=== PATIENT | male | born 1995 | race Caucasian/White ===

== ENCOUNTER 2023-01-07 17:21 | Emergency (ER) | payer MEDICAID, SELFPAY ==
[~2023-01-07] VITALS: Ht 180.3 cm; Wt 89.0 kg
[2023-01-07 18:40] LABS: BASO % 0.4 % (0.0-1.0); EOS # 0.2 10^3/uL (0.0-0.5); EOS % 2.2 % (0.0-3.0); HEMATOCRIT 45.9 % (42.0-52.0); HEMOGLOBIN 15.6 g/dl (13.5-17.5); LYMPH % 26.9 % (24.0-44.0); MEAN CORPUSCULAR HEMOGLOBIN 26.9 pg (27.0-33.0); MEAN CORPUSCULAR VOLUME 79.3 fl (80.0-96.0); MONO # 1.1 10^3/uL (0.0-0.8); NEUTROPHILS % 55.2 % (36.0-66.0); PLATELET COUNT, AUTOMATED 322 10^3/uL (150-450); RED BLOOD COUNT 5.79 10^6/uL (4.30-6.10); WHITE BLOOD COUNT 7.3 10^3/uL (4.0-10.0)
[2023-01-07] MEDS ORDERED: ONDANSETRON 4MG 2ML VIAL IV ONE (18:55)
[2023-01-07] MEDS ORDERED: NS 1,000 ML IV ONE (18:55)
[2023-01-07] MEDS ORDERED: MORPHINE 4 MG/ML 1ML VIAL IV ONE (18:55)
[2023-01-07] MEDS ORDERED: ISOVUE-370 76% 100ML VIAL As Ordered ONE (19:00)
[2023-01-07 19:01] LABS: LIPASE 30 U/L (12-53)
[2023-01-07 19:03] LABS: ALBUMIN 3.7 G/DL (3.2-5.2); ALKALINE PHOSPHATASE 81 U/L (46-116); ALT/SGPT 26 U/L (7.0-40); AST/SGOT 20 U/L (<34); BILIRUBIN,DIRECT 0.2 MG/DL (<0.4); BILIRUBIN,TOTAL 0.6 MG/DL (0.3-1.2); BLOOD UREA NITROGEN 13 MG/DL (9-23); CALCIUM LEVEL 8.6 MG/DL (8.5-10.1); CARBON DIOXIDE LEVEL 26 MMOL/L (20-31); CHLORIDE LEVEL 104 MMOL/L (98-107); CREATININE FOR GFR 0.77 MG/DL (0.70-1.30); GLOMERULAR FILTRATION RATE > 60.0 (>60); GLUCOSE, FASTING 93 MG/DL (60-100); SODIUM LEVEL 136 MMOL/L (136-145); TOTAL PROTEIN 7.2 G/DL (5.7-8.2)
[2023-01-07] MEDS ORDERED: PENICILLIN V POTASSIUM 500 MG TAB PO ONE (20:55)
[2023-01-07 20:59] VITALS: BP 131/70; TEMP 98.7; O2SAT 98
[2023-01-07] MEDS ORDERED: PENI500T PO (21:06)
== END 2023-01-07 21:15 | disposition home or self-care (01) ==
LOC: M ED 17:21
DX: J03.00 Acute streptococcal tonsillitis, unspecified (principal); N20.0 Calculus of kidney; N28.1 Cyst of kidney, acquired; K76.89 Other specified diseases of liver; K21.9 Gastro-esophageal reflux disease without esophagitis; Z87.442 Personal history of urinary calculi; Z79.899 Other long term (current) drug therapy; F12.10 Cannabis abuse, uncomplicated; Z88.6 Allergy status to analgesic agent; Z88.5 Allergy status to narcotic agent; Z88.8 Allergy status to other drugs, medicaments and biological substances
CPT/HCPCS: 71046; 74177; 76705; 80048; 80076; 81001; 83605; 83690; 85025; 87486; 87581; 87633; 87798; 96361; 96374; 96375; 99284; J2405; Q9967

== ENCOUNTER 2023-01-28 20:06 | Emergency (ER) | payer MEDICAID, SELFPAY ==
[~2023-01-28] VITALS: Ht 180.3 cm; Wt 92.1 kg
[~2023-01-28 20:06] MED LIST: PENI500T PO
[2023-01-28] MEDS ORDERED: NAPR220C14 PO (20:13)
[2023-01-28] MEDS ORDERED: IBUP-1114 PO (20:13)
[2023-01-29] MEDS ORDERED: methocarbamoL 750 MG TAB PO ONE (01:30)
[2023-01-29] MEDS ORDERED: predniSONE 20 MG TAB PO ONE (01:30)
[2023-01-29] MEDS ORDERED: PRED20TA PO (01:33)
[2023-01-29] MEDS ORDERED: NAPR-837 PO (01:33)
[2023-01-29] MEDS ORDERED: METH-1165 PO (01:35)
[2023-01-29] MEDS ORDERED: ANEC4CRE3 TOP (01:35)
[2023-01-29] MEDS ORDERED: KETOROLAC 60MG 2ML VIAL IM ONE (02:00)
[2023-01-29 02:04] VITALS: BP 120/61; TEMP 97.1; O2SAT 97
== END 2023-01-29 02:05 | disposition home or self-care (01) ==
LOC: M ED 20:06
DX: R59.0 Localized enlarged lymph nodes (principal); Z87.442 Personal history of urinary calculi; F17.200 Nicotine dependence, unspecified, uncomplicated; Z88.6 Allergy status to analgesic agent; Z88.1 Allergy status to other antibiotic agents; Z88.5 Allergy status to narcotic agent
CPT/HCPCS: 96372; 99283; J1885

== ENCOUNTER 2023-02-27 09:27 | Emergency (ER) | payer MEDICAID, SELFPAY ==
[~2023-02-27] VITALS: Ht 180.3 cm; Wt 97.7 kg
[~2023-02-27 09:27] MED LIST changes: +ANEC4CRE3 TOP; +IBUP-1114 PO; +METH-1165 PO; +NAPR-837 PO; +NAPR220C14 PO; +PRED20TA PO
[2023-02-27] MEDS ORDERED: KETOROLAC 30 MG/ML 1ML VIAL IV ONE (11:25)
[2023-02-27] MEDS ORDERED: diazePAM 10MG/2ML SYRINGE IV ONE (11:25)
[2023-02-27] MEDS ORDERED: NS 1,000 ML IV ONE (11:25)
[2023-02-27] MEDS ORDERED: methylPREDNISolone 125MG 2ML VIAL IV ONE (11:25)
[2023-02-27 11:44] LABS: BASO # 0.1 10^3/uL (0.0-0.2); BASO % 0.8 % (0.0-1.0); EOS # 0.5 10^3/uL (0.0-0.5); EOS % 4.2 % (0.0-3.0); HEMATOCRIT 47.4 % (42.0-52.0); LYMPH # 1.9 10^3/uL (1.5-5.0); LYMPH % 17.6 % (24.0-44.0); MEAN CORPUSCULAR HEMOGLOBIN 27.3 pg (27.0-33.0); MEAN CORPUSCULAR HGB CONC 33.8 g/dl (32.0-36.5); MEAN CORPUSCULAR VOLUME 80.7 fl (80.0-96.0); MONO % 8.9 % (2.0-8.0); NEUTROPHILS # 7.5 10^3/uL (1.5-8.5); NEUTROPHILS % 68.1 % (36.0-66.0); PLATELET COUNT, AUTOMATED 359 10^3/uL (150-450); RED BLOOD COUNT 5.87 10^6/uL (4.30-6.10)
[2023-02-27 11:53] LABS: ERYTHROCYTE SEDIMENTATION RATE 19 mm/hr (0-15)
[2023-02-27] MEDS ORDERED: ONDANSETRON 4MG 2ML VIAL IV ONE (12:00)
[2023-02-27 12:12] LABS: BLOOD UREA NITROGEN 14 MG/DL (9-23); CALCIUM LEVEL 9.1 MG/DL (8.5-10.1); CARBON DIOXIDE LEVEL 28 MMOL/L (20-31); CHLORIDE LEVEL 105 MMOL/L (98-107); CREATININE FOR GFR 0.78 MG/DL (0.70-1.30); GLOMERULAR FILTRATION RATE > 60.0 (>60); GLUCOSE, FASTING 90 MG/DL (60-100); POTASSIUM SERUM 4.5 MMOL/L (3.5-5.1); SODIUM LEVEL 138 MMOL/L (136-145)
[2023-02-27] MEDS ORDERED: PRED20TA PO (16:18)
[2023-02-27 16:39] VITALS: BP 146/67; TEMP 97.6; O2SAT 97
== END 2023-02-27 16:49 | disposition home or self-care (01) ==
LOC: M ED 09:27
DX: M51.36 Other intervertebral disc degeneration, lumbar region (principal); M51.37 Other intervertebral disc degeneration, lumbosacral region; Z87.442 Personal history of urinary calculi; F17.200 Nicotine dependence, unspecified, uncomplicated; Z88.6 Allergy status to analgesic agent; Z88.1 Allergy status to other antibiotic agents; Z88.5 Allergy status to narcotic agent; Z88.8 Allergy status to other drugs, medicaments and biological substances
CPT/HCPCS: 72146; 72148; 80048; 85025; 85652; 86140; 96361; 96374; 96375; 99284; J1885; J2405; J2930; J3360

== ENCOUNTER 2023-03-12 19:03 | Emergency (ER) | payer MEDICAID, SELFPAY ==
[~2023-03-12] VITALS: Ht 180.3 cm; Wt 96.3 kg
[2023-03-12] MEDS ORDERED: NS 1,000 ML IV ONE (22:15)
[2023-03-12] MEDS ORDERED: predniSONE 20 MG TAB PO ONE (22:15)
[2023-03-12] MEDS ORDERED: methocarbamoL 500 MG TAB PO ONE (22:15)
[2023-03-13] MEDS ORDERED: KETOROLAC 30 MG/ML 1ML VIAL IV ONE (00:15)
[2023-03-13] MEDS ORDERED: METOCLOPRAMIDE INJ 10MG/2ML VIAL IV ONE (00:15)
[2023-03-13] MEDS ORDERED: REGL10TA6 PO (00:45)
[2023-03-13] MEDS ORDERED: PRED20TA PO (00:45)
[2023-03-13] MEDS ORDERED: METH-1164 PO (00:45)
[2023-03-13] MEDS ORDERED: IBUP-1022 PO (00:45)
[2023-03-13 01:08] VITALS: BP 122/58; TEMP 98.5; O2SAT 97
== END 2023-03-13 01:49 | disposition home or self-care (01) ==
LOC: M ED 19:03
DX: R42 Dizziness and giddiness (principal); M54.40 Lumbago with sciatica, unspecified side; Z87.442 Personal history of urinary calculi; Z88.6 Allergy status to analgesic agent; Z88.5 Allergy status to narcotic agent; Z88.8 Allergy status to other drugs, medicaments and biological substances
CPT/HCPCS: 70544; 70547; 70551; 72110; 87486; 87581; 87633; 87798; 96374; 96375; 99284; J1885; J2765; J7512

== ENCOUNTER 2023-04-24 11:16 | Emergency (ER) | payer MEDICAID, OTHER ==
[~2023-04-24] VITALS: Ht 180.3 cm; Wt 95.7 kg
[~2023-04-24 11:16] MED LIST changes: +IBUP-1022 PO; +METH-1164 PO; +REGL10TA6 PO
[2023-04-24 11:17] VITALS: BP 130/73; TEMP 98.1; O2SAT 99
[2023-04-24] MEDS ORDERED: NAPR-837 PO (13:21)
== END 2023-04-24 13:33 | disposition home or self-care (01) ==
LOC: M ED 11:16
DX: G56.02 Carpal tunnel syndrome, left upper limb (principal); F17.200 Nicotine dependence, unspecified, uncomplicated; Z88.6 Allergy status to analgesic agent; Z88.5 Allergy status to narcotic agent; Z88.8 Allergy status to other drugs, medicaments and biological substances

== ENCOUNTER 2023-05-16 01:03 | Emergency (ER) | payer OTHER ==
[~2023-05-16] VITALS: Ht 180.3 cm; Wt 92.6 kg
[2023-05-16 09:30] VITALS: BP 110/69; TEMP 96.4; O2SAT 100
== END 2023-05-16 09:32 | disposition home or self-care (01) ==
LOC: M ED 01:03
DX: G89.29 Other chronic pain (principal); M25.562 Pain in left knee; F17.200 Nicotine dependence, unspecified, uncomplicated; Z88.6 Allergy status to analgesic agent; Z88.5 Allergy status to narcotic agent; Z88.8 Allergy status to other drugs, medicaments and biological substances

== ENCOUNTER → 2023-05-21 | Outpatient (CLI) | payer OTHER | LOC: M SOG 08:03 | PROVIDERS: ATTEND Orthopaedic Surgery Hand Surgery | DX: M25.531 Pain in right wrist (principal); Z53.9 Procedure and treatment not carried out, unspecified reason ==

== ENCOUNTER 2023-07-20 06:59 | Day surgery (SDC) | payer OTHER ==
[~2023-07-20] VITALS: Ht 180.3 cm; Wt 97.5 kg
[~2023-07-20 06:59] MED LIST changes: +LR 1,000 ML IV SCH
[2023-07-20] MEDS ORDERED: MIDAZOLAM INJ 2MG/2ML VIAL As Ordered ONE (07:13)
[2023-07-20] MEDS ORDERED: propofoL 200 MG/20 ML VIAL As Ordered ONE (07:13)
[2023-07-20] MEDS ORDERED: fentaNYL 100 MCG/2 ML INJECTION As Ordered ONE (07:13)
[2023-07-20] MEDS ORDERED: KETOROLAC 60MG 2ML VIAL As Ordered ONE (07:13)
[2023-07-20] MEDS ORDERED: LIDOCAINE 2% 100MG/5ML SDV (FOR ANES.) As Ordered ONE (07:13)
[2023-07-20] MEDS ORDERED: fentaNYL 100 MCG/2 ML INJECTION IV PRN (09:05)
[2023-07-20] MEDS ORDERED: ONDANSETRON 4MG 2ML VIAL IV PRN (09:05)
[2023-07-20] MEDS ORDERED: KETOROLAC 30 MG/ML 1ML VIAL As Ordered ONE (09:13)
[2023-07-20 10:56] VITALS: BP 128/76; TEMP 97.2; O2SAT 100
== END 2023-07-20 11:14 | disposition home or self-care (01) ==
LOC: M SDC 06:59
PROVIDERS: ATTEND Orthopaedic Surgery Hand Surgery
DX: G56.02 Carpal tunnel syndrome, left upper limb (principal); K21.9 Gastro-esophageal reflux disease without esophagitis; R07.89 Other chest pain; Z88.5 Allergy status to narcotic agent; Z88.8 Allergy status to other drugs, medicaments and biological substances; Z91.040 Latex allergy status; F17.218 Nicotine dependence, cigarettes, with other nicotine-induced disorders; F12.10 Cannabis abuse, uncomplicated
CPT/HCPCS: 29848; J0665; J2250; J3010

== ENCOUNTER 2023-07-24 21:55 | Emergency (ER) | payer OTHER ==
[~2023-07-24] VITALS: Ht 180.3 cm; Wt 98.4 kg
[~2023-07-24 21:55] MED LIST changes: -LR 1,000 ML IV SCH
[2023-07-25 04:00] VITALS: BP 130/60; TEMP 99; O2SAT 99
== END 2023-07-25 04:50 | disposition home or self-care (01) ==
LOC: M ED 21:55
DX: S63.602A Unspecified sprain of left thumb, initial encounter (principal); W01.0XXA Fall on same level from slipping, tripping and stumbling without subsequent striking against object, initial encounter; F17.200 Nicotine dependence, unspecified, uncomplicated; F12.10 Cannabis abuse, uncomplicated; Z87.442 Personal history of urinary calculi; Z88.5 Allergy status to narcotic agent; Z88.8 Allergy status to other drugs, medicaments and biological substances; Z91.040 Latex allergy status; Z91.048 Other nonmedicinal substance allergy status

== ENCOUNTER → 2023-07-29 | Outpatient (CLI) | payer OTHER ==
[2023-07-29 16:03] LABS: BASO # 0.1 10^3/uL (0.0-0.2); BASO % 1.1 % (0.0-1.0); EOS # 0.5 10^3/uL (0.0-0.5); EOS % 7.1 % (0.0-3.0); HEMATOCRIT 45.9 % (42.0-52.0); HEMOGLOBIN 15.5 g/dl (13.5-17.5); LYMPH # 2.2 10^3/uL (1.5-5.0); LYMPH % 30.4 % (24.0-44.0); MEAN CORPUSCULAR HEMOGLOBIN 27.8 pg (27.0-33.0); MEAN CORPUSCULAR HGB CONC 33.8 g/dl (32.0-36.5); MEAN CORPUSCULAR VOLUME 82.4 fl (80.0-96.0); MONO # 0.7 10^3/uL (0.0-0.8); MONO % 9.1 % (2.0-8.0); NEUTROPHILS # 3.7 10^3/uL (1.5-8.5); PLATELET COUNT, AUTOMATED 338 10^3/uL (150-450); RED BLOOD COUNT 5.57 10^6/uL (4.30-6.10); WHITE BLOOD COUNT 7.2 10^3/uL (4.0-10.0)
[2023-07-29 16:34] LABS: ALBUMIN 3.8 G/DL (3.2-5.2); ALKALINE PHOSPHATASE 70 U/L (46-116); ALT/SGPT 30 U/L (7.0-40); AST/SGOT 17 U/L (<34); BILIRUBIN,TOTAL 0.5 MG/DL (0.3-1.2); BLOOD UREA NITROGEN 11 MG/DL (9-23); CALCIUM LEVEL 9.1 MG/DL (8.5-10.1); CARBON DIOXIDE LEVEL 29 MMOL/L (20-31); CHLORIDE LEVEL 104 MMOL/L (98-107); CHOLESTEROL LEVEL 154 MG/DL (<200); CHOLESTEROL RISK RATIO 4.59 (<5); CREATININE FOR GFR 0.87 MG/DL (0.70-1.30); FREE T4 1.15 NG/DL (0.89-1.76); GLOMERULAR FILTRATION RATE > 60.0 (>60); GLUCOSE, FASTING 79 MG/DL (60-100); HDL CHOLESTEROL 33.5 MG/DL (>40); LDL CHOLESTEROL 112.9 MG/DL (<100); NON-HDL-C 120.5 MG/DL; POTASSIUM SERUM 4.5 MMOL/L (3.5-5.1); SODIUM LEVEL 138 MMOL/L (136-145); THYROID STIMULATING HORMONE 1.067 uIU/ML (0.55-4.78); TRIGLYCERIDES LEVEL 38 MG/DL (<150)
[2023-07-29 17:04] LABS: HIV 1&2 SCREEN NEGATIVE (NEGATIVE)
[2023-07-29 17:12] LABS: HEPATITIS C VIRUS ABY INDEX 0.05 INDEX (<0.8)
== END ==
LOC: M PLALAB 13:57
PROVIDERS: ATTEND Physician Assistant
DX: Z11.4 Encounter for screening for human immunodeficiency virus [HIV] (principal); Z68.30 Body mass index [BMI] 30.0-30.9, adult; Z13.1 Encounter for screening for diabetes mellitus; Z13.29 Encounter for screening for other suspected endocrine disorder; Z11.59 Encounter for screening for other viral diseases

== ENCOUNTER 2023-08-09 17:30 | Emergency (ER) | payer OTHER ==
[~2023-08-09] VITALS: Ht 180.3 cm; Wt 97.6 kg
[2023-08-09] MEDS ORDERED: ONDANSETRON 4MG 2ML VIAL IV ONE (18:10)
[2023-08-09] MEDS ORDERED: NS 1,000 ML IV ONE (18:10)
[2023-08-09 18:57] LABS: BASO # 0.1 10^3/uL (0.0-0.2); BASO % 0.6 % (0.0-1.0); EOS # 0.8 10^3/uL (0.0-0.5); EOS % 6.1 % (0.0-3.0); HEMATOCRIT 44.5 % (42.0-52.0); HEMOGLOBIN 14.9 g/dl (13.5-17.5); LYMPH % 14.5 % (24.0-44.0); MEAN CORPUSCULAR HEMOGLOBIN 27.4 pg (27.0-33.0); MEAN CORPUSCULAR HGB CONC 33.5 g/dl (32.0-36.5); MEAN CORPUSCULAR VOLUME 81.8 fl (80.0-96.0); MONO # 1.4 10^3/uL (0.0-0.8); MONO % 10.5 % (2.0-8.0); NEUTROPHILS # 9.3 10^3/uL (1.5-8.5); NEUTROPHILS % 67.9 % (36.0-66.0); PLATELET COUNT, AUTOMATED 306 10^3/uL (150-450); RED BLOOD COUNT 5.44 10^6/uL (4.30-6.10); WHITE BLOOD COUNT 13.7 10^3/uL (4.0-10.0)
[2023-08-09 19:17] LABS: ALBUMIN 3.7 G/DL (3.2-5.2); BILIRUBIN,DIRECT 0.2 MG/DL (<0.4); BILIRUBIN,TOTAL 0.4 MG/DL (0.3-1.2); RSV AMPLIFICATION NEGATIVE (NEGATIVE); TOTAL PROTEIN 6.8 G/DL (5.7-8.2)
[2023-08-09] MEDS ORDERED: ISOVUE-370 76% 100ML VIAL As Ordered ONE (19:43)
[2023-08-09] MEDS ORDERED: BENZONATATE 100MG CAPSULE PO ONE (20:15)
[2023-08-09] MEDS ORDERED: KETOROLAC 30 MG/ML 1ML VIAL IV ONE (20:15)
[2023-08-09] MEDS ORDERED: BENZ200C70 PO (20:48)
[2023-08-09] MEDS ORDERED: ONDA4TAB6 PO (20:48)
[2023-08-09 20:58] VITALS: BP 126/74; TEMP 98.2; O2SAT 98
== END 2023-08-09 21:01 | disposition home or self-care (01) ==
LOC: M ED 17:30
DX: J06.9 Acute upper respiratory infection, unspecified (principal); F17.200 Nicotine dependence, unspecified, uncomplicated; F12.10 Cannabis abuse, uncomplicated; Z87.442 Personal history of urinary calculi; Z88.5 Allergy status to narcotic agent; Z88.6 Allergy status to analgesic agent; Z91.040 Latex allergy status; Z91.048 Other nonmedicinal substance allergy status; Z79.83 Long term (current) use of bisphosphonates; Z79.899 Other long term (current) drug therapy
CPT/HCPCS: 71046; 74177; 80047; 80076; 83690; 85025; 87040; 87631; 96361; 96374; 96375; 99284; J1885; J2405; Q9967

== ENCOUNTER → 2023-09-29 | Outpatient (CLI) | payer OTHER ==
[~2023-09-29] MED LIST changes: +BENZ200C70 PO; +ONDA4TAB6 PO
== END ==
LOC: M PLAIMG 12:04
PROVIDERS: ATTEND Physician Assistant
DX: M25.511 Pain in right shoulder (principal)

== ENCOUNTER → 2023-10-26 | Outpatient (CLI) | payer OTHER | LOC: M RAD 15:41 | PROVIDERS: ATTEND Physician Assistant | DX: R59.0 Localized enlarged lymph nodes (principal) ==

== ENCOUNTER 2023-11-01 18:41 | Emergency (ER) | payer OTHER ==
[~2023-11-01] VITALS: Ht 180.3 cm; Wt 97.7 kg
[2023-11-01 19:10] LABS: BASO # 0.1 10^3/uL (0.0-0.2); BASO % 0.6 % (0.0-1.0); EOS # 0.3 10^3/uL (0.0-0.5); EOS % 2.1 % (0.0-3.0); HEMATOCRIT 46.2 % (42.0-52.0); HEMOGLOBIN 15.8 g/dl (13.5-17.5); LYMPH # 2.2 10^3/uL (1.5-5.0); LYMPH % 16.4 % (24.0-44.0); MEAN CORPUSCULAR HEMOGLOBIN 28.1 pg (27.0-33.0); MEAN CORPUSCULAR HGB CONC 34.2 g/dl (32.0-36.5); MEAN CORPUSCULAR VOLUME 82.1 fl (80.0-96.0); MONO # 1.1 10^3/uL (0.0-0.8); MONO % 8.2 % (2.0-8.0); NEUTROPHILS # 9.8 10^3/uL (1.5-8.5); NEUTROPHILS % 72.3 % (36.0-66.0); PLATELET COUNT, AUTOMATED 333 10^3/uL (150-450); RED BLOOD COUNT 5.63 10^6/uL (4.30-6.10); WHITE BLOOD COUNT 13.6 10^3/uL (4.0-10.0)
[2023-11-01] MEDS: MORPHINE 4 MG/ML 1ML VIAL IV ONE (19:18)
[2023-11-01] MEDS: ONDANSETRON 4MG 2ML VIAL IV ONE (19:18)
[2023-11-01] MEDS: NS 1,000 ML IV ONE (19:19)
[2023-11-01 19:38] LABS: LIPASE 32 U/L (12-53)
[2023-11-01 19:39] LABS: AMYLASE 54 U/L (30-118)
[2023-11-01 19:40] LABS: ALBUMIN 3.7 G/DL (3.2-5.2); ALKALINE PHOSPHATASE 68 U/L (46-116); ALT/SGPT 26 U/L (7.0-40); AST/SGOT 16 U/L (<34); BILIRUBIN,DIRECT 0.1 MG/DL (<0.4); BILIRUBIN,TOTAL 0.3 MG/DL (0.3-1.2); BLOOD UREA NITROGEN 13 MG/DL (9-23); CALCIUM LEVEL 8.7 MG/DL (8.5-10.1); CARBON DIOXIDE LEVEL 26 MMOL/L (20-31); CHLORIDE LEVEL 109 MMOL/L (98-107); CREATININE FOR GFR 1.01 MG/DL (0.70-1.30); GLOMERULAR FILTRATION RATE > 60.0 (>60); GLUCOSE, FASTING 96 MG/DL (60-100); POTASSIUM SERUM 4.1 MMOL/L (3.5-5.1); SODIUM LEVEL 141 MMOL/L (136-145); TOTAL PROTEIN 6.7 G/DL (5.7-8.2)
[2023-11-01] MEDS ORDERED: FLOM0.4C39 PO (20:32)
[2023-11-01] MEDS: TAMSULOSIN 0.4 MG CAP PO ONE (20:44)
[2023-11-01 20:56] VITALS: BP 128/76; TEMP 98.8; O2SAT 98
== END 2023-11-01 20:58 | disposition home or self-care (01) ==
LOC: M ED 18:41
DX: N20.0 Calculus of kidney (principal); F17.200 Nicotine dependence, unspecified, uncomplicated; Z87.442 Personal history of urinary calculi; Z88.6 Allergy status to analgesic agent; Z88.5 Allergy status to narcotic agent; Z88.8 Allergy status to other drugs, medicaments and biological substances; Z91.040 Latex allergy status; Z79.83 Long term (current) use of bisphosphonates; Z79.2 Long term (current) use of antibiotics; Z79.899 Other long term (current) drug therapy
CPT/HCPCS: 74176; 80048; 80076; 81001; 82150; 83605; 83690; 85025; 93041; 96361; 96374; 99284; J2405

== ENCOUNTER 2023-11-03 12:23 | Emergency (ER) | payer OTHER ==
[~2023-11-03] VITALS: Ht 167.6 cm; Wt 97.7 kg
[~2023-11-03 12:23] MED LIST changes: +FLOM0.4C39 PO
[2023-11-03] MEDS ORDERED: CELE1CAP99 (12:37)
[2023-11-03 13:04] LABS: BASO # 0.1 10^3/uL (0.0-0.2); BASO % 0.5 % (0.0-1.0); EOS # 0.4 10^3/uL (0.0-0.5); EOS % 2.7 % (0.0-3.0); HEMATOCRIT 46.9 % (42.0-52.0); HEMOGLOBIN 15.8 g/dl (13.5-17.5); LYMPH # 2.2 10^3/uL (1.5-5.0); LYMPH % 14.8 % (24.0-44.0); MEAN CORPUSCULAR HGB CONC 33.7 g/dl (32.0-36.5); MONO # 1.7 10^3/uL (0.0-0.8); MONO % 11.2 % (2.0-8.0); NEUTROPHILS # 10.6 10^3/uL (1.5-8.5); NEUTROPHILS % 70.5 % (36.0-66.0); PLATELET COUNT, AUTOMATED 321 10^3/uL (150-450); RED BLOOD COUNT 5.65 10^6/uL (4.30-6.10)
[2023-11-03 13:37] LABS: ALBUMIN 3.6 G/DL (3.2-5.2); BILIRUBIN,DIRECT 0.3 MG/DL (<0.4); BILIRUBIN,TOTAL 0.7 MG/DL (0.3-1.2); TOTAL PROTEIN 6.8 G/DL (5.7-8.2)
[2023-11-03] MEDS: MORPHINE 4 MG/ML 1ML VIAL IV ONE (15:25)
[2023-11-03] MEDS: NS 1,000 ML IV ONE (15:26)
[2023-11-03 16:18] LABS: CALCIUM LEVEL 8.3 MG/DL (8.5-10.1); CREATININE FOR GFR 1.58 MG/DL (0.70-1.30); GLOMERULAR FILTRATION RATE 55.5 (>60); POTASSIUM SERUM 4.1 MMOL/L (3.5-5.1)
[2023-11-03 16:30] LABS: RSV AMPLIFICATION NEGATIVE (NEGATIVE)
[2023-11-03] MEDS: KETOROLAC 30 MG/ML 1ML VIAL IV ONE (16:44)
[2023-11-03 18:01] VITALS: BP 138/85; TEMP 97.9; O2SAT 99
== END 2023-11-03 18:14 | disposition home or self-care (01) ==
LOC: M ED 12:23
DX: N20.1 Calculus of ureter (principal); F17.200 Nicotine dependence, unspecified, uncomplicated; F12.10 Cannabis abuse, uncomplicated; Z87.442 Personal history of urinary calculi; Z88.6 Allergy status to analgesic agent; Z88.5 Allergy status to narcotic agent; Z88.8 Allergy status to other drugs, medicaments and biological substances; Z91.040 Latex allergy status; Z79.83 Long term (current) use of bisphosphonates; Z79.899 Other long term (current) drug therapy
CPT/HCPCS: 74176; 80047; 80048; 80076; 81001; 83690; 85025; 87631; 96361; 96374; 96375; 99284; J1885

== ENCOUNTER 2023-12-05 13:39 | Emergency (ER) | payer OTHER ==
[~2023-12-05] VITALS: Ht 180.3 cm; Wt 108.3 kg
[~2023-12-05 13:39] MED LIST changes: +CELE1CAP99
[2023-12-05] MEDS ORDERED: MUCI600T31 PO (13:50)
[2023-12-05 14:54] LABS: BASO # 0.1 10^3/uL (0.0-0.2); BASO % 0.9 % (0.0-1.0); EOS # 0.3 10^3/uL (0.0-0.5); EOS % 4.1 % (0.0-3.0); HEMOGLOBIN 16.5 g/dl (13.5-17.5); LYMPH % 24.1 % (24.0-44.0); MEAN CORPUSCULAR HGB CONC 34.4 g/dl (32.0-36.5); MEAN CORPUSCULAR VOLUME 81.5 fl (80.0-96.0); MONO # 0.6 10^3/uL (0.0-0.8); MONO % 7.2 % (2.0-8.0); NEUTROPHILS # 5.1 10^3/uL (1.5-8.5); NEUTROPHILS % 63.2 % (36.0-66.0); RED BLOOD COUNT 5.89 10^6/uL (4.30-6.10); WHITE BLOOD COUNT 8.1 10^3/uL (4.0-10.0)
[2023-12-05 14:59] LABS: PLATELET COUNT, AUTOMATED 258 10^3/uL (150-450)
[2023-12-05 15:09] LABS: ALBUMIN 3.9 G/DL (3.2-5.2); ALKALINE PHOSPHATASE 63 U/L (46-116); ALT/SGPT 44 U/L (7.0-40); AST/SGOT 50 U/L (<34); BILIRUBIN,DIRECT < 0.1 MG/DL (<0.4); BILIRUBIN,TOTAL 0.4 MG/DL (0.3-1.2); CK-MB VALUE MASS < 1.0 NG/ML (<3.6); CPK CREATINE PHOSPHOKINASE 93 U/L (46-171); LIPASE 40 U/L (12-53); MB/CK RELATIVE INDEX 1.07 (< OR =4); TOTAL PROTEIN 7.2 G/DL (5.7-8.2)
[2023-12-05] MEDS: KETOROLAC 30 MG/ML 1ML VIAL IV ONE (16:11)
[2023-12-05] MEDS: fentaNYL 100 MCG/2 ML INJECTION IV ONE (17:49)
[2023-12-05] MEDS ORDERED: ISOVUE-370 76% 100ML VIAL As Ordered ONE (18:02)
[2023-12-05 20:43] VITALS: BP 120/60; TEMP 98; O2SAT 98
== END 2023-12-05 21:03 | disposition home or self-care (01) ==
LOC: M ED 13:39
DX: K80.50 Calculus of bile duct without cholangitis or cholecystitis without obstruction (principal); Z87.442 Personal history of urinary calculi; F17.200 Nicotine dependence, unspecified, uncomplicated; Z88.6 Allergy status to analgesic agent; Z88.5 Allergy status to narcotic agent; Z88.8 Allergy status to other drugs, medicaments and biological substances; Z91.89 Other specified personal risk factors, not elsewhere classified; Z91.040 Latex allergy status
CPT/HCPCS: 74177; 76705; 80047; 80076; 81001; 82550; 82553; 83690; 85025; 87086; 93005; 96374; 96375; 99284; J1885; J3010; Q9967

== ENCOUNTER → 2023-12-10 | Outpatient (CLI) | payer OTHER ==
[~2023-12-10] MED LIST changes: +MUCI600T31 PO
== END ==
LOC: M PLAIMG 10:52
PROVIDERS: ATTEND Physician Assistant
DX: M75.41 Impingement syndrome of right shoulder (principal); M25.511 Pain in right shoulder; M19.011 Primary osteoarthritis, right shoulder

== ENCOUNTER 2023-12-14 17:16 | Emergency (ER) | payer OTHER ==
[~2023-12-14] VITALS: Ht 180.3 cm; Wt 108.5 kg
[2023-12-14] MEDS ORDERED: PANT40TA29 (17:30)
[2023-12-14] MEDS ORDERED: ONDA4TAB6 (17:30)
[2023-12-14 20:12] LABS: BASO # 0.1 10^3/uL (0.0-0.2); BASO % 0.7 % (0.0-1.0); EOS # 0.4 10^3/uL (0.0-0.5); EOS % 3.7 % (0.0-3.0); HEMATOCRIT 46.8 % (42.0-52.0); HEMOGLOBIN 15.9 g/dl (13.5-17.5); LYMPH # 2.5 10^3/uL (1.5-5.0); LYMPH % 25.8 % (24.0-44.0); MEAN CORPUSCULAR HEMOGLOBIN 27.7 pg (27.0-33.0); MEAN CORPUSCULAR VOLUME 81.7 fl (80.0-96.0); MONO # 0.8 10^3/uL (0.0-0.8); MONO % 8.1 % (2.0-8.0); NEUTROPHILS % 61.4 % (36.0-66.0); PLATELET COUNT, AUTOMATED 313 10^3/uL (150-450); RED BLOOD COUNT 5.73 10^6/uL (4.30-6.10); WHITE BLOOD COUNT 9.7 10^3/uL (4.0-10.0)
[2023-12-14 20:43] LABS: LIPASE 34 U/L (12-53)
[2023-12-14 20:45] LABS: ALBUMIN 3.9 G/DL (3.2-5.2); ALKALINE PHOSPHATASE 65 U/L (46-116); ALT/SGPT 42 U/L (7.0-40); AST/SGOT 21 U/L (<34); BILIRUBIN,DIRECT 0.1 MG/DL (<0.4); BILIRUBIN,TOTAL 0.4 MG/DL (0.3-1.2); BLOOD UREA NITROGEN 11 MG/DL (9-23); CALCIUM LEVEL 9.2 MG/DL (8.5-10.1); CARBON DIOXIDE LEVEL 26 MMOL/L (20-31); CHLORIDE LEVEL 109 MMOL/L (98-107); CREATININE FOR GFR 0.84 MG/DL (0.70-1.30); GLOMERULAR FILTRATION RATE > 60.0 (>60); GLUCOSE, FASTING 88 MG/DL (60-100); POTASSIUM SERUM 4.4 MMOL/L (3.5-5.1); SODIUM LEVEL 139 MMOL/L (136-145)
[2023-12-15] MEDS: DICYCLOMINE 10 MG CAP PO ONE (01:23)
[2023-12-15] MEDS: KETOROLAC 60MG 2ML VIAL IM ONE (01:23)
[2023-12-15] MEDS: ONDANSETRON 4MG ORAL DISINTEGRATING TAB PO ONE (01:24)
[2023-12-15] MEDS ORDERED: IBUP-1022 PO (02:00)
[2023-12-15 02:15] VITALS: BP 116/71; TEMP 97.6; O2SAT 96
== END 2023-12-15 02:37 | disposition home or self-care (01) ==
LOC: M ED 17:16
DX: R10.11 Right upper quadrant pain (principal); K21.9 Gastro-esophageal reflux disease without esophagitis; Z87.442 Personal history of urinary calculi; F17.200 Nicotine dependence, unspecified, uncomplicated; Z88.6 Allergy status to analgesic agent; Z88.8 Allergy status to other drugs, medicaments and biological substances; Z88.5 Allergy status to narcotic agent; Z91.018 Allergy to other foods; Z91.89 Other specified personal risk factors, not elsewhere classified
CPT/HCPCS: 76705; 80048; 80076; 83690; 85025; 96372; 99284; J1885

== ENCOUNTER 2024-01-19 20:00 | Emergency (ER) | payer OTHER ==
[~2024-01-19] VITALS: Ht 180.3 cm; Wt 104.5 kg
[~2024-01-19 20:00] MED LIST changes: +ONDA4TAB6; +PANT40TA29
[2024-01-19 20:09] VITALS: TEMP 98.4
[2024-01-19 20:56] LABS: BASO # 0.1 10^3/uL (0.0-0.2); BASO % 0.5 % (0.0-1.0); EOS # 0.1 10^3/uL (0.0-0.5); EOS % 0.4 % (0.0-3.0); HEMATOCRIT 44.1 % (42.0-52.0); HEMOGLOBIN 15.1 g/dl (13.5-17.5); LYMPH # 2.4 10^3/uL (1.5-5.0); LYMPH % 16.4 % (24.0-44.0); MEAN CORPUSCULAR HEMOGLOBIN 27.7 pg (27.0-33.0); MEAN CORPUSCULAR HGB CONC 34.2 g/dl (32.0-36.5); MEAN CORPUSCULAR VOLUME 80.8 fl (80.0-96.0); MONO # 1.5 10^3/uL (0.0-0.8); MONO % 10.2 % (2.0-8.0); NEUTROPHILS # 10.4 10^3/uL (1.5-8.5); PLATELET COUNT, AUTOMATED 323 10^3/uL (150-450); RED BLOOD COUNT 5.46 10^6/uL (4.30-6.10); WHITE BLOOD COUNT 14.5 10^3/uL (4.0-10.0)
[2024-01-19 21:31] LABS: LIPASE 38 U/L (12-53)
[2024-01-19 21:34] LABS: ALBUMIN 3.9 G/DL (3.2-5.2); ALKALINE PHOSPHATASE 64 U/L (46-116); ALT/SGPT 30 U/L (7.0-40); AST/SGOT 16 U/L (<34); BILIRUBIN,DIRECT 0.2 MG/DL (<0.4); BILIRUBIN,TOTAL 0.5 MG/DL (0.3-1.2); BLOOD UREA NITROGEN 16 MG/DL (9-23); CALCIUM LEVEL 8.5 MG/DL (8.5-10.1); CARBON DIOXIDE LEVEL 23 MMOL/L (20-31); CHLORIDE LEVEL 108 MMOL/L (98-107); CREATININE FOR GFR 1.08 MG/DL (0.70-1.30); GLOMERULAR FILTRATION RATE > 60.0 (>60); GLUCOSE, FASTING 86 MG/DL (60-100); SODIUM LEVEL 141 MMOL/L (136-145); TOTAL PROTEIN 6.7 G/DL (5.7-8.2)
[2024-01-19] MEDS: MORPHINE 4 MG/ML 1ML VIAL IV ONE (21:34)
[2024-01-19] MEDS: NS 1,000 ML IV SCH (21:35)
[2024-01-19] MEDS: GASTROGRAFIN SOLUTION 30ML PO SCH (23:09)
[2024-01-19] MEDS: KETOROLAC 30 MG/ML 1ML VIAL IV ONE (23:16)
[2024-01-19] MEDS ORDERED: ISOVUE-370 76% 100ML VIAL As Ordered ONE (23:54)
[2024-01-20 01:45] VITALS: BP 108/59; O2SAT 94
== END 2024-01-20 02:16 | disposition home or self-care (01) ==
LOC: M ED 20:00
DX: K80.51 Calculus of bile duct without cholangitis or cholecystitis with obstruction (principal); F90.9 Attention-deficit hyperactivity disorder, unspecified type; Z88.5 Allergy status to narcotic agent; Z88.6 Allergy status to analgesic agent; Z88.8 Allergy status to other drugs, medicaments and biological substances; Z91.89 Other specified personal risk factors, not elsewhere classified; Z91.040 Latex allergy status
CPT/HCPCS: 74177; 76705; 80048; 80076; 81001; 83605; 83690; 85025; 87040; 93041; 96374; 96375; 99283; 99284; J1885; Q9963; Q9967

== ENCOUNTER 2024-03-28 17:24 | Emergency (ER) | payer OTHER ==
[~2024-03-28] VITALS: Ht 180.3 cm; Wt 102.0 kg
[~2024-03-28 17:24] MED LIST changes: +LIDO5DIS41 TD; +ONDA-282; +ONDA-282 PO; -ONDA4TAB6; -ONDA4TAB6 PO; +PANT20TA6 PO; +PANT40TA29 PO
[2024-03-28] MEDS: diazePAM 5MG TABLET PO ONE (19:03)
[2024-03-28] MEDS: KETOROLAC 30 MG/ML 1ML VIAL IM ONE (19:04)
[2024-03-28] MEDS: MORPHINE 4 MG/ML 1ML VIAL IV ONE (20:34)
[2024-03-28] MEDS: LIDOCAINE 5% (LIDODERM) PATCH TD ONE (20:35)
[2024-03-28] MEDS ORDERED: NAPR-885 PO (21:48)
[2024-03-28] MEDS ORDERED: MEDR4PAK PO (21:48)
[2024-03-28 22:01] VITALS: BP 133/86; TEMP 97.4; O2SAT 97
== END 2024-03-28 22:05 | disposition home or self-care (01) ==
LOC: M ED 17:24
DX: M51.27 Other intervertebral disc displacement, lumbosacral region (principal); K21.9 Gastro-esophageal reflux disease without esophagitis; Z87.442 Personal history of urinary calculi; F17.200 Nicotine dependence, unspecified, uncomplicated; Z79.899 Other long term (current) drug therapy; Z88.6 Allergy status to analgesic agent; Z88.8 Allergy status to other drugs, medicaments and biological substances; Z88.5 Allergy status to narcotic agent; Z91.89 Other specified personal risk factors, not elsewhere classified; Z91.040 Latex allergy status
CPT/HCPCS: 72128; 72131; 96372; 96374; 99284; J1100; J1885

== ENCOUNTER 2024-05-04 15:06 | Day surgery (SDC) | payer OTHER ==
[~2024-05-04] VITALS: Ht 180.3 cm; Wt 107.5 kg
[~2024-05-04 15:06] MED LIST changes: +BACL10TA2 PO; +CELE0.09 PO; +FAMO1TAB11 PO; +MEDR4PAK PO; +NAPR-885 PO
[2024-05-04] MEDS ORDERED: LR 1,000 ML IV SCH ×2 (15:10→18:55)
[2024-05-04] MEDS ORDERED: OXYC-517 PO (16:37)
[2024-05-04] MEDS ORDERED: propofoL 200 MG/20 ML VIAL As Ordered ONE (16:41)
[2024-05-04] MEDS ORDERED: ONDA-282 PO (16:41)
[2024-05-04] MEDS ORDERED: ROCURONIUM BROMIDE 50MG/5ML VIAL As Ordered ONE (16:41)
[2024-05-04] MEDS ORDERED: ACET325C5 PO (16:41)
[2024-05-04] MEDS ORDERED: CELE1CAP4 PO (16:41)
[2024-05-04] MEDS ORDERED: LIDOCAINE 2% 100MG/5ML SDV (FOR ANES.) As Ordered ONE (16:44)
[2024-05-04] MEDS ORDERED: fentaNYL 100 MCG/2 ML INJECTION As Ordered ONE (16:46)
[2024-05-04] MEDS ORDERED: MIDAZOLAM INJ 2MG/2ML VIAL As Ordered ONE (16:47)
[2024-05-04] MEDS: ceFAZolin 2 GM/D5W 50 ML IV BAG As Ordered ONE (17:20)
[2024-05-04] MEDS: TRANEXAMIC ACID 100 MG/ML 10ML VIAL As Ordered ONE (17:25)
[2024-05-04] MEDS ORDERED: ONDANSETRON 4MG 2ML VIAL As Ordered ONE (17:32)
[2024-05-04] MEDS ORDERED: SUGAMMADEX SODIUM 500 MG/5 ML VIAL (BRIDION) As Ordered ONE (17:32)
[2024-05-04] MEDS ORDERED: dexmedeTOMIDine (4MCG/ML)200MCG/50ML BTL (PRECEDEX) As Ordered ONE (17:50)
[2024-05-04] MEDS ORDERED: KETOROLAC 60MG 2ML VIAL As Ordered ONE (17:50)
[2024-05-04] MEDS ORDERED: VANCOMYCIN 1000MG/20ML VIAL As Ordered ONE (18:27)
[2024-05-04] MEDS ORDERED: ONDANSETRON 4MG 2ML VIAL IV PRN (18:55)
[2024-05-04] MEDS ORDERED: ROPIvacaine 0.5% 30ML VIAL PN ONE (18:55)
[2024-05-04] MEDS ORDERED: MIDAZOLAM INJ 2MG/2ML VIAL IV PRN (18:55)
[2024-05-04] MEDS ORDERED: dexAMETHasone 10MG/1ML VIAL PRES.FREE PN ONE (18:55)
[2024-05-04] MEDS ORDERED: LIDOCAINE 1% SDV 5ML VIAL PN ONE (18:55)
[2024-05-04] MEDS ORDERED: fentaNYL 100 MCG/2 ML INJECTION IV PRN ×2 (18:55)
[2024-05-04 20:10] VITALS: BP 145/78; TEMP 96.8; O2SAT 99
[2024-05-05] MEDS ORDERED: CELE1CAP4 PO (23:01)
[2024-05-05] MEDS ORDERED: OXYC-517 PO (23:01)
[2024-05-05] MEDS ORDERED: ACET-907 PO (23:01)
[2024-05-05] MEDS ORDERED: ONDA-282 PO (23:01)
== END 2024-05-04 20:39 | disposition home or self-care (01) ==
LOC: M SDC 15:06
PROVIDERS: ATTEND Orthopaedic Surgery
DX: M19.011 Primary osteoarthritis, right shoulder (principal); M75.21 Bicipital tendinitis, right shoulder; K21.9 Gastro-esophageal reflux disease without esophagitis; F17.218 Nicotine dependence, cigarettes, with other nicotine-induced disorders; F12.10 Cannabis abuse, uncomplicated
CPT/HCPCS: 23120; 29828; 73020; C1713; J0665; J0690; J1100; J1885; J2250; J2405; J3010; J3370

== ENCOUNTER 2024-05-05 15:49 | Inpatient (IN) | payer OTHER ==
[~2024-05-05] VITALS: Ht 180.3 cm; Wt 106.4 kg
[~2024-05-05 15:49] MED LIST changes: +ACET325C5 PO; +CELE1CAP4 PO; +OXYC-517 PO
[2024-05-05] MEDS: oxyCODONE 5MG TAB PO ONE (20:47)
[2024-05-05] MEDS: methylPREDNISolone 125MG 2ML VIAL IV ONE (20:48)
[2024-05-05] MEDS: FAMOTIDINE IV BAG 20 MG in IV 1 EA IV ONE (20:49)
[2024-05-05] MEDS: KETOROLAC 30 MG/ML 1ML VIAL IV ONE (20:49)
[2024-05-05 21:00] LABS: BASO # 0.1 10^3/uL (0.0-0.2); BASO % 0.2 % (0.0-1.0); HEMATOCRIT 45.4 % (42.0-52.0); HEMOGLOBIN 15.6 g/dl (13.5-17.5); LYMPH # 2.2 10^3/uL (1.5-5.0); LYMPH % 5.8 % (24.0-44.0); MEAN CORPUSCULAR HEMOGLOBIN 28.3 pg (27.0-33.0); MEAN CORPUSCULAR HGB CONC 34.4 g/dl (32.0-36.5); MEAN CORPUSCULAR VOLUME 82.4 fl (80.0-96.0); MONO # 2.5 10^3/uL (0.0-0.8); MONO % 6.6 % (2.0-8.0); NEUTROPHILS # 32.1 10^3/uL (1.5-8.5); NEUTROPHILS % 86.6 % (36.0-66.0); PLATELET COUNT, AUTOMATED 351 10^3/uL (150-450); RED BLOOD COUNT 5.51 10^6/uL (4.30-6.10)
[2024-05-05 21:06] LABS: WHITE BLOOD COUNT 37.1 10^3/uL (4.0-10.0)
[2024-05-05 21:10] LABS: ERYTHROCYTE SEDIMENTATION RATE 17 mm/hr (0-15)
[2024-05-05 21:20] LABS: BLOOD UREA NITROGEN 16 MG/DL (9-23); CALCIUM LEVEL 9.2 MG/DL (8.5-10.1); CARBON DIOXIDE LEVEL 27 MMOL/L (20-31); CHLORIDE LEVEL 107 MMOL/L (98-107); CREATININE FOR GFR 1.01 MG/DL (0.70-1.30); GLOMERULAR FILTRATION RATE > 60.0 (>60); GLUCOSE, FASTING 113 MG/DL (60-100); POTASSIUM SERUM 4.1 MMOL/L (3.5-5.1); SODIUM LEVEL 140 MMOL/L (136-145)
[2024-05-05] MEDS: cefTRIAXone SOD 2 GM in D5W MINI-BAG PLUS 50 ML IV ONE (21:46)
[2024-05-05] MEDS ORDERED: OXYC-517 PO (23:01)
[2024-05-05] MEDS ORDERED: ACET-907 PO (23:01)
[2024-05-05] MEDS ORDERED: ONDA-282 PO (23:01)
[2024-05-05] MEDS ORDERED: CELE1CAP4 PO (23:01)
[2024-05-05] MEDS ORDERED: HOME MED LIST COMPLETE! XX SCH (23:05)
[2024-05-05] MEDS ORDERED: MOM 30ML SUSPENSION UDC PO PRN (23:20)
[2024-05-06] MEDS ORDERED: ACETAMINOPHEN 325 MG TAB PO PRN (00:35)
[2024-05-06 00:37] VITALS: BP 156/85; TEMP 97.9; O2SAT 94
[2024-05-06] MEDS: oxyCODONE 5MG TAB PO PRN ×2 (01:11→16:57)
[2024-05-06 05:08] VITALS: BP 149/84; TEMP 97.5; O2SAT 95
[2024-05-06] MEDS: ceFAZolin SOD 1 GM in D5W MINI-BAG PLUS 50 ML IV SCH (05:20)
[2024-05-06] MEDS: KETOROLAC 30 MG/ML 1ML VIAL IV ONE ×2 (05:20→08:15)
[2024-05-06 06:16] LABS: HEMATOCRIT 40.7 % (42.0-52.0); HEMOGLOBIN 13.9 g/dl (13.5-17.5); MEAN CORPUSCULAR HEMOGLOBIN 28.3 pg (27.0-33.0); MEAN CORPUSCULAR HGB CONC 34.2 g/dl (32.0-36.5); MEAN CORPUSCULAR VOLUME 82.9 fl (80.0-96.0); PLATELET COUNT, AUTOMATED 301 10^3/uL (150-450); RED BLOOD COUNT 4.91 10^6/uL (4.30-6.10)
[2024-05-06 06:27] LABS: INR 1.15; PARTIAL THROMBOPLASTIN TIME 27.1 SECONDS (24.8-34.2); PROTHROMBIN TIME 14.4 SECONDS (12.5-14.5)
[2024-05-06 06:41] LABS: BLOOD UREA NITROGEN 21 MG/DL (9-23); CALCIUM LEVEL 8.8 MG/DL (8.5-10.1); CARBON DIOXIDE LEVEL 24 MMOL/L (20-31); CHLORIDE LEVEL 109 MMOL/L (98-107); CREATININE FOR GFR 1.03 MG/DL (0.70-1.30); GLOMERULAR FILTRATION RATE > 60.0 (>60); GLUCOSE, FASTING 190 MG/DL (60-100); POTASSIUM SERUM 4.8 MMOL/L (3.5-5.1); SODIUM LEVEL 138 MMOL/L (136-145)
[2024-05-06] MEDS: MORPHINE 2 MG/ML 1ML VIAL IV ONE (08:15)
[2024-05-06 11:35] VITALS: BP 146/87; TEMP 97.9; O2SAT 97
[2024-05-06] MEDS ORDERED: MORPHINE 4 MG/ML 1ML VIAL IV PRN (12:00)
[2024-05-06] MEDS: ALPRAZolam 0.5 MG TAB PO PRN (13:39)
[2024-05-06] MEDS ORDERED: NICOTINE POLACRILEX 2 MG GUM PO PRN (17:00)
[2024-05-06] MEDS: ONDANSETRON 4MG ORAL DISINTEGRATING TAB PO PRN (19:56)
[2024-05-06 20:00] VITALS: BP 149/71; TEMP 97.5; O2SAT 94
[2024-05-06] MEDS: NICOTINE 21MG/24HR 1 EA TRANSDERMAL TD SCH (21:19)
[2024-05-07 04:00] VITALS: BP 113/66; TEMP 97.7; O2SAT 97
[2024-05-07] MEDS ORDERED: BACI1CAP PO (07:28)
[2024-05-07] MEDS ORDERED: CEPH500C PO (07:32)
[2024-05-07 07:52] LABS: BASO # 0.1 10^3/uL (0.0-0.2); BASO % 0.4 % (0.0-1.0); EOS % 0.3 % (0.0-3.0); HEMOGLOBIN 15.1 g/dl (13.5-17.5); LYMPH % 29.8 % (24.0-44.0); MEAN CORPUSCULAR HEMOGLOBIN 28.2 pg (27.0-33.0); MEAN CORPUSCULAR HGB CONC 33.6 g/dl (32.0-36.5); MONO # 1.2 10^3/uL (0.0-0.8); MONO % 9.3 % (2.0-8.0); NEUTROPHILS % 59.7 % (36.0-66.0); PLATELET COUNT, AUTOMATED 283 10^3/uL (150-450); RED BLOOD COUNT 5.36 10^6/uL (4.30-6.10); WHITE BLOOD COUNT 13.4 10^3/uL (4.0-10.0)
[2024-05-07 12:00] VITALS: BP 135/82; TEMP 97.5; O2SAT 98
== END 2024-05-07 14:15 | disposition home or self-care (01) | DRG 385 ==
LOC: M ED 15:49 → M ED INP 23:16 → M MS5PR 05-06 00:20
PROVIDERS: ADMIT Internal Medicine; ATTEND Internal Medicine
DX: L23.1 Allergic contact dermatitis due to adhesives (principal); R65.10 Systemic inflammatory response syndrome (SIRS) of non-infectious origin without acute organ dysfunction; F17.210 Nicotine dependence, cigarettes, uncomplicated; T78.49XA Other allergy, initial encounter; Z79.891 Long term (current) use of opiate analgesic; Z79.899 Other long term (current) drug therapy; Z88.1 Allergy status to other antibiotic agents; Z88.5 Allergy status to narcotic agent; Z88.6 Allergy status to analgesic agent; Z91.040 Latex allergy status; Z91.048 Other nonmedicinal substance allergy status; Z11.52 Encounter for screening for COVID-19

== ENCOUNTER 2024-05-10 16:48 | Emergency (ER) | payer OTHER ==
[~2024-05-10 16:48] MED LIST changes: +ACET-907 PO; +BACI1CAP PO; +CEPH500C PO
[2024-05-10 17:00] VITALS: TEMP 98.2
[2024-05-10] MEDS ORDERED: FAMO1TAB11 (17:21)
[2024-05-10 17:28] LABS: BASO # 0.1 10^3/uL (0.0-0.2); BASO % 0.6 % (0.0-1.0); EOS # 0.4 10^3/uL (0.0-0.5); EOS % 2.8 % (0.0-3.0); HEMATOCRIT 47.1 % (42.0-52.0); HEMOGLOBIN 16.1 g/dl (13.5-17.5); LYMPH # 2.9 10^3/uL (1.5-5.0); LYMPH % 23.4 % (24.0-44.0); MEAN CORPUSCULAR HEMOGLOBIN 28.3 pg (27.0-33.0); MEAN CORPUSCULAR HGB CONC 34.2 g/dl (32.0-36.5); MEAN CORPUSCULAR VOLUME 82.9 fl (80.0-96.0); MONO % 8.4 % (2.0-8.0); NEUTROPHILS # 7.8 10^3/uL (1.5-8.5); NEUTROPHILS % 62.6 % (36.0-66.0); PLATELET COUNT, AUTOMATED 339 10^3/uL (150-450); RED BLOOD COUNT 5.68 10^6/uL (4.30-6.10); WHITE BLOOD COUNT 12.5 10^3/uL (4.0-10.0)
[2024-05-10 17:44] LABS: CK-MB VALUE MASS < 1.0 NG/ML (<3.6)
[2024-05-10 17:46] LABS: BLOOD UREA NITROGEN 15 MG/DL (9-23); CALCIUM LEVEL 9.4 MG/DL (8.5-10.1); CARBON DIOXIDE LEVEL 29 MMOL/L (20-31); CHLORIDE LEVEL 104 MMOL/L (98-107); CPK CREATINE PHOSPHOKINASE 60 U/L (46-171); CREATININE FOR GFR 0.99 MG/DL (0.70-1.30); GLOMERULAR FILTRATION RATE > 60.0 (>60); GLUCOSE, FASTING 93 MG/DL (60-100); MB/CK RELATIVE INDEX 1.66 (< OR =4); POTASSIUM SERUM 4.5 MMOL/L (3.5-5.1); SODIUM LEVEL 138 MMOL/L (136-145)
[2024-05-10] MEDS ORDERED: ISOVUE-370 76% 100ML VIAL As Ordered ONE (18:23)
[2024-05-10 20:16] VITALS: BP 115/59; O2SAT 91
== END 2024-05-10 20:28 | disposition home or self-care (01) ==
LOC: M ED 16:48
DX: R07.89 Other chest pain (principal); G89.18 Other acute postprocedural pain; R59.0 Localized enlarged lymph nodes; T40.605A Adverse effect of unspecified narcotics, initial encounter; F17.200 Nicotine dependence, unspecified, uncomplicated; Z88.6 Allergy status to analgesic agent; Z88.5 Allergy status to narcotic agent; Z88.8 Allergy status to other drugs, medicaments and biological substances; Z91.89 Other specified personal risk factors, not elsewhere classified; Z91.040 Latex allergy status
CPT/HCPCS: 71275; 74021; 80048; 82550; 82553; 84484; 85025; 93005; 93041; 94760; 99285; Q9967

== ENCOUNTER → 2024-05-19 | Outpatient (CLI) | payer OTHER ==
[~2024-05-19] MED LIST changes: +FAMO1TAB11
[2024-05-19 13:28] LABS: BASO # 0.1 10^3/uL (0.0-0.2); BASO % 0.7 % (0.0-1.0); EOS # 0.4 10^3/uL (0.0-0.5); EOS % 3.7 % (0.0-3.0); HEMATOCRIT 47.4 % (42.0-52.0); LYMPH # 2.3 10^3/uL (1.5-5.0); LYMPH % 19.7 % (24.0-44.0); MEAN CORPUSCULAR HEMOGLOBIN 28.1 pg (27.0-33.0); MEAN CORPUSCULAR HGB CONC 33.8 g/dl (32.0-36.5); MEAN CORPUSCULAR VOLUME 83.2 fl (80.0-96.0); MONO # 1.1 10^3/uL (0.0-0.8); MONO % 9.3 % (2.0-8.0); NEUTROPHILS # 7.8 10^3/uL (1.5-8.5); NEUTROPHILS % 65.9 % (36.0-66.0); PLATELET COUNT, AUTOMATED 343 10^3/uL (150-450); WHITE BLOOD COUNT 11.8 10^3/uL (4.0-10.0)
[2024-05-19 13:36] LABS: ERYTHROCYTE SEDIMENTATION RATE 19 mm/hr (0-15)
[2024-05-19 14:01] LABS: BLOOD UREA NITROGEN 15 MG/DL (9-23); CALCIUM LEVEL 9.3 MG/DL (8.5-10.1); CARBON DIOXIDE LEVEL 28 MMOL/L (20-31); CHLORIDE LEVEL 107 MMOL/L (98-107); CREATININE FOR GFR 0.98 MG/DL (0.70-1.30); GLOMERULAR FILTRATION RATE > 60.0 (>60); GLUCOSE, FASTING 87 MG/DL (60-100); POTASSIUM SERUM 4.3 MMOL/L (3.5-5.1); SODIUM LEVEL 139 MMOL/L (136-145)
[2024-05-19 14:02] LABS: IRON (FE) 97 UG/DL (65-175); PERCENT SATURATION 28.8 % (19.7-50.0); TOTAL IRON BINDING CAPACITY 337 UG/DL (250-425)
[2024-05-19 14:04] LABS: FERRITIN 42.4 NG/ML (10.5-307.3)
== END ==
LOC: M PLALAB 11:08
PROVIDERS: ATTEND Physician Assistant
DX: D72.829 Elevated white blood cell count, unspecified (principal); R42 Dizziness and giddiness

== ENCOUNTER 2024-05-20 09:58 | Outpatient (RCR) | payer OTHER | END 2024-05-28 | LOC: M PT 09:58 | PROVIDERS: ATTEND Orthopaedic Surgery | DX: M75.21 Bicipital tendinitis, right shoulder (principal) ==

== ENCOUNTER 2024-06-05 18:15 | Emergency (ER) | payer OTHER ==
[~2024-06-05] VITALS: Ht 180.3 cm; Wt 110.6 kg
[2024-06-05 18:15] VITALS: TEMP 98.3
[2024-06-05] MEDS: NS 1,000 ML IV ONE (20:41)
[2024-06-05] MEDS: ONDANSETRON 4MG 2ML VIAL IV ONE (20:42)
[2024-06-05] MEDS: KETOROLAC 30 MG/ML 1ML VIAL IV ONE (20:42)
[2024-06-05 20:52] LABS: BASO # 0.1 10^3/uL (0.0-0.2); BASO % 0.6 % (0.0-1.0); EOS # 0.1 10^3/uL (0.0-0.5); EOS % 0.7 % (0.0-3.0); HEMATOCRIT 48.1 % (42.0-52.0); HEMOGLOBIN 15.9 g/dl (13.5-17.5); LYMPH # 2.4 10^3/uL (1.5-5.0); LYMPH % 21.9 % (24.0-44.0); MEAN CORPUSCULAR HEMOGLOBIN 27.4 pg (27.0-33.0); MEAN CORPUSCULAR HGB CONC 33.1 g/dl (32.0-36.5); MEAN CORPUSCULAR VOLUME 82.9 fl (80.0-96.0); MONO % 8.7 % (2.0-8.0); NEUTROPHILS # 7.4 10^3/uL (1.5-8.5); NEUTROPHILS % 67.8 % (36.0-66.0); PLATELET COUNT, AUTOMATED 363 10^3/uL (150-450); WHITE BLOOD COUNT 10.9 10^3/uL (4.0-10.0)
[2024-06-05 21:10] LABS: LIPASE 30 U/L (12-53)
[2024-06-05 21:12] LABS: ALBUMIN 3.9 G/DL (3.2-5.2); ALKALINE PHOSPHATASE 83 U/L (46-116); ALT/SGPT 35 U/L (7.0-40); AST/SGOT 14 U/L (<34); BILIRUBIN,DIRECT 0.2 MG/DL (<0.4); BILIRUBIN,TOTAL 0.6 MG/DL (0.3-1.2); BLOOD UREA NITROGEN 13 MG/DL (9-23); CALCIUM LEVEL 9.5 MG/DL (8.5-10.1); CARBON DIOXIDE LEVEL 27 MMOL/L (20-31); CHLORIDE LEVEL 109 MMOL/L (98-107); CREATININE FOR GFR 1.02 MG/DL (0.70-1.30); GLOMERULAR FILTRATION RATE > 60.0 (>60); GLUCOSE, FASTING 95 MG/DL (60-100); POTASSIUM SERUM 4.1 MMOL/L (3.5-5.1); SODIUM LEVEL 140 MMOL/L (136-145); TOTAL PROTEIN 7.3 G/DL (5.7-8.2)
[2024-06-05] MEDS ORDERED: ISOVUE-370 76% 100ML VIAL As Ordered ONE (21:31)
[2024-06-06] MEDS: PROMETHAZINE 25MG/ML 1ML VIAL IV ONE (00:25)
[2024-06-06 01:00] VITALS: BP 106/56; O2SAT 96
[2024-06-06] MEDS ORDERED: PROM25TA12 PO (01:14)
== END 2024-06-06 01:23 | disposition home or self-care (01) ==
LOC: M ED 18:15
DX: R10.9 Unspecified abdominal pain (principal); R91.1 Solitary pulmonary nodule; N28.1 Cyst of kidney, acquired; F90.9 Attention-deficit hyperactivity disorder, unspecified type; F17.200 Nicotine dependence, unspecified, uncomplicated; Z79.899 Other long term (current) drug therapy; Z88.6 Allergy status to analgesic agent; Z88.5 Allergy status to narcotic agent; Z88.8 Allergy status to other drugs, medicaments and biological substances; Z91.040 Latex allergy status; Z91.89 Other specified personal risk factors, not elsewhere classified
CPT/HCPCS: 71045; 74177; 80048; 80076; 83605; 83690; 85025; 87040; 87486; 87581; 87633; 87798; 93041; 96361; 96374; 96375; 99284; J1885; J2405; J2550; Q9967

== ENCOUNTER → 2024-08-19 | Outpatient (CLI) | payer OTHER ==
[~2024-08-19] MED LIST changes: +PROM25TA12 PO
== END ==
LOC: M PLAIMG 12:41
PROVIDERS: ATTEND Family Medicine
DX: R59.0 Localized enlarged lymph nodes (principal)

== ENCOUNTER 2024-09-03 18:29 | Emergency (ER) | payer OTHER ==
[~2024-09-03] VITALS: Ht 180.3 cm; Wt 114.9 kg
[2024-09-03] MEDS: KETOROLAC 60MG 2ML VIAL IM ONE (19:00)
[2024-09-03 20:14] LABS: APPEARANCE, URINE CLEAR (CLEAR); BACTERIA, URINE AUTO NEGATIVE (NEGATIVE); BILIRUBIN, URINE AUTO NEGATIVE (NEGATIVE); BLOOD, URINE BLOOD NEGATIVE (NEGATIVE); COLOR, URINE YELLOW (YELLOW); GLUCOSE, URINE (UA) AUTO NEGATIVE (NEGATIVE); KETONE, URINE AUTO NEGATIVE (NEGATIVE); LEUKOCYTE ESTERASE, URINE AUTO NEGATIVE (NEGATIVE); MUCUS, URINE SMALL (NEGATIVE); NITRITE, URINE AUTO NEGATIVE (NEGATIVE); PROTEIN, URINE AUTO NEGATIVE (NEGATIVE); RBC, URINE AUTO 2 /HPF (0-3); SPECIFIC GRAVITY URINE AUTO 1.016 (1.002-1.035); SQUAMOUS EPITHELIAL CELL UR AU 0 /HPF (0-6); UROBILINOGEN, URINE AUTO 0.2 mg/dL (0.0-2.0); WBC, URINE AUTO 1 /HPF (0-3)
[2024-09-03] MEDS ORDERED: ISOVUE-370 76% 100ML VIAL As Ordered ONE (20:22)
[2024-09-03 21:00] LABS: HEMATOCRIT 47.2 % (42.0-52.0); MEAN CORPUSCULAR HEMOGLOBIN 27.3 pg (27.0-33.0); MEAN CORPUSCULAR HGB CONC 33.9 g/dl (32.0-36.5); MEAN CORPUSCULAR VOLUME 80.5 fl (80.0-96.0); PLATELET COUNT, AUTOMATED 324 10^3/uL (150-450); RED BLOOD COUNT 5.86 10^6/uL (4.30-6.10); WHITE BLOOD COUNT 10.5 10^3/uL (4.0-10.0)
[2024-09-03 21:23] LABS: BLOOD UREA NITROGEN 14 MG/DL (9-23); CALCIUM LEVEL 9.2 MG/DL (8.5-10.1); CARBON DIOXIDE LEVEL 25 MMOL/L (20-31); CHLORIDE LEVEL 106 MMOL/L (98-107); CREATININE FOR GFR 0.83 MG/DL (0.70-1.30); GLOMERULAR FILTRATION RATE > 60.0 (>60); GLUCOSE, FASTING 94 MG/DL (60-100); POTASSIUM SERUM 4.5 MMOL/L (3.5-5.1); SODIUM LEVEL 138 MMOL/L (136-145)
[2024-09-03 21:27] LABS: GC DNA AMPLIFICATION NEGATIVE (NEGATIVE)
[2024-09-03 21:33] LABS: Trichomonas vaginalis (AMP) NOT DETECTED (NEGATIVE)
[2024-09-03] MEDS ORDERED: IBUP-1022 PO (22:06)
[2024-09-03 22:25] VITALS: BP 156/95; TEMP 97.3; O2SAT 96
== END 2024-09-03 22:30 | disposition home or self-care (01) ==
LOC: M ED 18:29
DX: K40.30 Unilateral inguinal hernia, with obstruction, without gangrene, not specified as recurrent (principal); Z88.6 Allergy status to analgesic agent; Z88.5 Allergy status to narcotic agent; Z88.8 Allergy status to other drugs, medicaments and biological substances; Z91.89 Other specified personal risk factors, not elsewhere classified; Z91.040 Latex allergy status
CPT/HCPCS: 74177; 76870; 80047; 80048; 81001; 85027; 87661; 87810; 87850; 93976; 96372; 99284; J1885; Q9967

== ENCOUNTER → 2024-10-11 | Outpatient (CLI) | payer OTHER ==
[2024-10-11 10:56] LABS: BASO # 0.1 10^3/uL (0.0-0.2); EOS # 0.2 10^3/uL (0.0-0.5); EOS % 2.5 % (0.0-3.0); HEMATOCRIT 48.4 % (42.0-52.0); HEMOGLOBIN 16.2 g/dl (13.5-17.5); LYMPH # 2.3 10^3/uL (1.5-5.0); LYMPH % 26.4 % (24.0-44.0); MEAN CORPUSCULAR HEMOGLOBIN 27.4 pg (27.0-33.0); MEAN CORPUSCULAR HGB CONC 33.5 g/dl (32.0-36.5); MEAN CORPUSCULAR VOLUME 81.9 fl (80.0-96.0); MONO # 0.9 10^3/uL (0.0-0.8); MONO % 10.3 % (2.0-8.0); NEUTROPHILS # 5.1 10^3/uL (1.5-8.5); NEUTROPHILS % 59.3 % (36.0-66.0); PLATELET COUNT, AUTOMATED 354 10^3/uL (150-450); RED BLOOD COUNT 5.91 10^6/uL (4.30-6.10); WHITE BLOOD COUNT 8.6 10^3/uL (4.0-10.0)
[2024-10-11 11:14] LABS: ALBUMIN 3.8 G/DL (3.2-5.2); ALKALINE PHOSPHATASE 75 U/L (40-129); ALT/SGPT 30 U/L (7.0-40); AST/SGOT 17 U/L (<34); BILIRUBIN,TOTAL 0.3 MG/DL (0.3-1.2); BLOOD UREA NITROGEN 13 MG/DL (9-23); CALCIUM LEVEL 10.2 MG/DL (8.5-10.1); CARBON DIOXIDE LEVEL 30 MMOL/L (20-31); CHLORIDE LEVEL 105 MMOL/L (98-107); CHOLESTEROL LEVEL 173 MG/DL (<200); CHOLESTEROL RISK RATIO 5.88 (<5); CREATININE FOR GFR 0.98 MG/DL (0.70-1.30); FOLATE 14.1 NG/ML (>5.4); GLOMERULAR FILTRATION RATE > 60.0 (>60); GLUCOSE, FASTING 90 MG/DL (60-100); HDL CHOLESTEROL 29.4 MG/DL (>40); LDL CHOLESTEROL 128.6 MG/DL (<100); MAGNESIUM LEVEL 1.9 MG/DL (1.8-2.4); NON-HDL-C 143.6 MG/DL; POTASSIUM SERUM 4.6 MMOL/L (3.5-5.1); SODIUM LEVEL 140 MMOL/L (136-145); TOTAL PROTEIN 7.5 G/DL (5.7-8.2); TRIGLYCERIDES LEVEL 75 MG/DL (<150)
[2024-10-11 11:15] LABS: VITAMIN B12 LEVEL 247 PG/ML (211-911)
== END ==
LOC: M PLALAB 09:09
PROVIDERS: ATTEND Nurse Practitioner Family
DX: D72.829 Elevated white blood cell count, unspecified (principal); R10.9 Unspecified abdominal pain; H93.13 Tinnitus, bilateral

== ENCOUNTER → 2024-10-12 | Outpatient (REF) | payer OTHER ==
[2024-10-12 14:05] LABS: AMORPHOUS SEDIMENT SMALL (NEGATIVE); APPEARANCE, URINE HAZY (CLEAR); BACTERIA, URINE AUTO NEGATIVE (NEGATIVE); BILIRUBIN, URINE AUTO NEGATIVE (NEGATIVE); BLOOD, URINE BLOOD NEGATIVE (NEGATIVE); CALCIUM OXALATE CRYSTALS SMALL; COLOR, URINE YELLOW (YELLOW); GLUCOSE, URINE (UA) AUTO NEGATIVE (NEGATIVE); KETONE, URINE AUTO NEGATIVE (NEGATIVE); LEUKOCYTE ESTERASE, URINE AUTO NEGATIVE (NEGATIVE); MUCUS, URINE SMALL (NEGATIVE); NITRITE, URINE AUTO NEGATIVE (NEGATIVE); PROTEIN, URINE AUTO NEGATIVE (NEGATIVE); RBC, URINE AUTO 1 /HPF (0-3); SPECIFIC GRAVITY URINE AUTO 1.018 (1.002-1.035); SQUAMOUS EPITHELIAL CELL UR AU 0 /HPF (0-6); UROBILINOGEN, URINE AUTO 0.2 mg/dL (0.0-2.0); WBC, URINE AUTO 2 /HPF (0-3)
== END ==
LOC: M SMT 12:38
PROVIDERS: ATTEND Nurse Practitioner Family
DX: N50.812 Left testicular pain (principal)

== ENCOUNTER → 2024-10-13 | Outpatient (CLI) | payer OTHER | LOC: M EKG 11:14 | PROVIDERS: ATTEND Nurse Practitioner Family | DX: R06.02 Shortness of breath (principal) ==

== ENCOUNTER 2024-10-19 05:14 | Emergency (ER) | payer OTHER ==
[~2024-10-19] VITALS: Ht 180.3 cm; Wt 115.5 kg
[2024-10-19 05:40] LABS: BASO # 0.1 10^3/uL (0.0-0.2); BASO % 0.7 % (0.0-1.0); EOS # 0.2 10^3/uL (0.0-0.5); EOS % 1.2 % (0.0-3.0); HEMATOCRIT 46.6 % (42.0-52.0); HEMOGLOBIN 15.8 g/dl (13.5-17.5); LYMPH # 3.7 10^3/uL (1.5-5.0); LYMPH % 28.8 % (24.0-44.0); MEAN CORPUSCULAR HEMOGLOBIN 27.3 pg (27.0-33.0); MEAN CORPUSCULAR HGB CONC 33.9 g/dl (32.0-36.5); MEAN CORPUSCULAR VOLUME 80.6 fl (80.0-96.0); MONO # 1.1 10^3/uL (0.0-0.8); MONO % 8.8 % (2.0-8.0); NEUTROPHILS # 7.7 10^3/uL (1.5-8.5); NEUTROPHILS % 60.1 % (36.0-66.0); PLATELET COUNT, AUTOMATED 327 10^3/uL (150-450); RED BLOOD COUNT 5.78 10^6/uL (4.30-6.10); WHITE BLOOD COUNT 12.8 10^3/uL (4.0-10.0)
[2024-10-19 05:57] LABS: INR 0.97; PROTHROMBIN TIME 13.2 SECONDS (12.5-14.5)
[2024-10-19 06:08] LABS: LIPASE 30 U/L (12-53)
[2024-10-19 06:11] LABS: ALBUMIN 3.8 G/DL (3.2-5.2); ALKALINE PHOSPHATASE 68 U/L (40-129); ALT/SGPT 23 U/L (7.0-40); AST/SGOT 22 U/L (<34); BILIRUBIN,DIRECT 0.1 MG/DL (<0.4); BILIRUBIN,TOTAL 0.4 MG/DL (0.3-1.2); BLOOD UREA NITROGEN 16 MG/DL (9-23); CALCIUM LEVEL 9.3 MG/DL (8.5-10.1); CARBON DIOXIDE LEVEL 24 MMOL/L (20-31); CHLORIDE LEVEL 107 MMOL/L (98-107); CK-MB VALUE MASS < 1.0 NG/ML (<3.6); GLOMERULAR FILTRATION RATE > 60.0 (>60); GLUCOSE, FASTING 99 MG/DL (60-100); POTASSIUM SERUM 4.4 MMOL/L (3.5-5.1); SODIUM LEVEL 141 MMOL/L (136-145); TOTAL PROTEIN 7.4 G/DL (5.7-8.2)
[2024-10-19 06:13] LABS: CPK CREATINE PHOSPHOKINASE 86 U/L (46-171); MB/CK RELATIVE INDEX 1.16 (< OR =4)
[2024-10-19 07:29] LABS: CK-MB VALUE MASS < 1.0 NG/ML (<3.6); CPK CREATINE PHOSPHOKINASE 74 U/L (46-171); MB/CK RELATIVE INDEX 1.35 (< OR =4)
[2024-10-19] MEDS ORDERED: ISOVUE-370 76% 100ML VIAL As Ordered ONE (07:39)
[2024-10-19] MEDS: KETOROLAC 30 MG/ML 1ML VIAL IV ONE ×2 (08:41→09:43)
[2024-10-19 10:33] VITALS: BP 128/84; TEMP 96.8; O2SAT 96
== END 2024-10-19 10:40 | disposition home or self-care (01) ==
LOC: M ED 05:14 → EDBD 05:14 → M ED 10:40
DX: R07.9 Chest pain, unspecified (principal); F17.200 Nicotine dependence, unspecified, uncomplicated; Z91.89 Other specified personal risk factors, not elsewhere classified; Z88.6 Allergy status to analgesic agent; Z88.5 Allergy status to narcotic agent; Z88.8 Allergy status to other drugs, medicaments and biological substances
CPT/HCPCS: 71045; 71275; 80053; 82248; 82550; 82553; 83690; 84484; 85025; 85610; 93005; 93041; 94760; 96374; 96376; 99285; J1885; Q9967

== ENCOUNTER 2024-10-21 22:12 | Emergency (ER) | payer OTHER ==
[~2024-10-21] VITALS: Ht 180.3 cm; Wt 113.8 kg
[~2024-10-21 22:12] MED LIST changes: -FLOM0.4C39 PO; +TAMS-18 PO
[2024-10-21 22:17] VITALS: BP 139/82; TEMP 97.9; O2SAT 98
== END 2024-10-22 00:04 | disposition left against medical advice (07) ==
LOC: M ED 22:12
DX: Z53.21 Procedure and treatment not carried out due to patient leaving prior to being seen by health care provider (principal)

== ENCOUNTER 2024-10-24 14:46 | Emergency (ER) | payer OTHER ==
[~2024-10-24] VITALS: Ht 180.3 cm; Wt 114.0 kg
[~2024-10-24 14:46] MED LIST changes: +FLOM0.4C39 PO; -TAMS-18 PO
[2024-10-24] MEDS ORDERED: LIDO5DIS41 TD (21:18)
[2024-10-24] MEDS ORDERED: ALBU8.5H INH (21:19)
[2024-10-24] MEDS ORDERED: DELS1LIQ3 PO (21:19)
[2024-10-24 21:32] VITALS: BP 136/98; TEMP 97.9; O2SAT 94
== END 2024-10-24 21:33 | disposition home or self-care (01) ==
LOC: M ED 14:46
DX: J98.11 Atelectasis (principal); J20.9 Acute bronchitis, unspecified; M94.0 Chondrocostal junction syndrome [Tietze]; J45.909 Unspecified asthma, uncomplicated; K21.9 Gastro-esophageal reflux disease without esophagitis; F17.200 Nicotine dependence, unspecified, uncomplicated; F12.10 Cannabis abuse, uncomplicated; Z88.6 Allergy status to analgesic agent; Z88.5 Allergy status to narcotic agent; Z88.8 Allergy status to other drugs, medicaments and biological substances; Z91.89 Other specified personal risk factors, not elsewhere classified; Z91.040 Latex allergy status

== ENCOUNTER → 2024-11-02 | Outpatient (CLI) | payer OTHER ==
[~2024-11-02] MED LIST changes: +ALBU8.5H INH; +DELS1LIQ3 PO
== END ==
LOC: M CARPUL 14:27
PROVIDERS: ATTEND Nurse Practitioner Family
DX: R06.02 Shortness of breath (principal)

== ENCOUNTER 2024-11-08 18:53 | Emergency (ER) | payer OTHER ==
[~2024-11-08] VITALS: Ht 180.3 cm; Wt 114.6 kg
[2024-11-08] MEDS: NS (Normal Saline) 0.9% 1,000 ML IV ONE (20:04)
[2024-11-08] MEDS: METOCLOPRAMIDE INJ 10MG/2ML VIAL IV ONE (20:04)
[2024-11-08] MEDS: KETOROLAC 30 MG/ML 1ML VIAL IV ONE (20:05)
[2024-11-08 20:20] LABS: BASO # 0.1 10^3/uL (0.0-0.2); BASO % 0.7 % (0.0-1.0); EOS # 0.2 10^3/uL (0.0-0.5); EOS % 1.7 % (0.0-3.0); HEMATOCRIT 48.4 % (42.0-52.0); HEMOGLOBIN 16.1 g/dl (13.5-17.5); LYMPH # 3.1 10^3/uL (1.5-5.0); LYMPH % 29.6 % (24.0-44.0); MEAN CORPUSCULAR HEMOGLOBIN 27.6 pg (27.0-33.0); MEAN CORPUSCULAR HGB CONC 33.3 g/dl (32.0-36.5); MONO # 0.9 10^3/uL (0.0-0.8); MONO % 8.8 % (2.0-8.0); NEUTROPHILS # 6.2 10^3/uL (1.5-8.5); NEUTROPHILS % 58.7 % (36.0-66.0); PLATELET COUNT, AUTOMATED 355 10^3/uL (150-450); RED BLOOD COUNT 5.83 10^6/uL (4.30-6.10); WHITE BLOOD COUNT 10.6 10^3/uL (4.0-10.0)
[2024-11-08 20:23] VITALS: O2SAT 97
[2024-11-08 20:24] VITALS: BP 127/83
[2024-11-08 20:26] VITALS: TEMP 97.1
[2024-11-08 20:40] LABS: INR 1.04; PARTIAL THROMBOPLASTIN TIME 30.6 SECONDS (24.8-34.2); PROTHROMBIN TIME 13.9 SECONDS (12.5-14.5)
[2024-11-08 20:44] LABS: BLOOD UREA NITROGEN 11 MG/DL (9-23); CALCIUM LEVEL 9.4 MG/DL (8.5-10.1); CARBON DIOXIDE LEVEL 29 MMOL/L (20-31); CHLORIDE LEVEL 105 MMOL/L (98-107); CREATININE FOR GFR 0.96 MG/DL (0.70-1.30); GLOMERULAR FILTRATION RATE > 60.0 (>60); GLUCOSE, FASTING 90 MG/DL (60-100); POTASSIUM SERUM 4.1 MMOL/L (3.5-5.1); SODIUM LEVEL 142 MMOL/L (136-145)
[2024-11-08 20:47] LABS: THYROID STIMULATING HORMONE 1.123 uIU/ML (0.55-4.78)
== END 2024-11-08 20:30 | disposition left against medical advice (07) ==
LOC: M ED 18:53
DX: R51.9 Headache, unspecified (principal); R42 Dizziness and giddiness; Z53.9 Procedure and treatment not carried out, unspecified reason; F90.9 Attention-deficit hyperactivity disorder, unspecified type; F17.200 Nicotine dependence, unspecified, uncomplicated; F12.10 Cannabis abuse, uncomplicated; Z79.899 Other long term (current) drug therapy; Z88.5 Allergy status to narcotic agent; Z88.8 Allergy status to other drugs, medicaments and biological substances; Z91.89 Other specified personal risk factors, not elsewhere classified; Z91.040 Latex allergy status
CPT/HCPCS: 70450; 71045; 80048; 84443; 85025; 85610; 85730; 93005; 93041; 94760; 96374; 96375; 99285; J1885; J2765

== ENCOUNTER → 2024-11-16 | Outpatient (CLI) | payer OTHER | LOC: M RAD 11:17 | PROVIDERS: ATTEND Nurse Practitioner Family | DX: R10.9 Unspecified abdominal pain (principal); N28.1 Cyst of kidney, acquired; K76.0 Fatty (change of) liver, not elsewhere classified ==

== ENCOUNTER → 2024-11-25 | Outpatient (CLI) | payer OTHER ==
[~2024-11-25] MED LIST changes: +ISOVUE-370 76% 100ML VIAL ONE
== END ==
LOC: M PLAIMG 13:32
PROVIDERS: ATTEND Nurse Practitioner Family
DX: D86.0 Sarcoidosis of lung (principal); R91.8 Other nonspecific abnormal finding of lung field
CPT/HCPCS: 71270; Q9967

== ENCOUNTER 2024-12-01 17:41 | Emergency (ER) | payer OTHER ==
[~2024-12-01] VITALS: Ht 180.3 cm; Wt 113.0 kg
[~2024-12-01 17:41] MED LIST changes: -ISOVUE-370 76% 100ML VIAL ONE
[2024-12-01 17:46] VITALS: TEMP 98.5
[2024-12-01] MEDS ORDERED: TRAM50TA2 (17:58)
[2024-12-01] MEDS ORDERED: OMEP40CA5 (17:58)
[2024-12-01 18:54] LABS: BASO # 0.1 10^3/uL (0.0-0.2); BASO % 0.7 % (0.0-1.0); EOS # 0.2 10^3/uL (0.0-0.5); EOS % 1.7 % (0.0-3.0); HEMATOCRIT 47.4 % (42.0-52.0); HEMOGLOBIN 16.7 g/dl (13.5-17.5); LYMPH # 2.8 10^3/uL (1.5-5.0); LYMPH % 27.1 % (24.0-44.0); MEAN CORPUSCULAR HEMOGLOBIN 27.7 pg (27.0-33.0); MEAN CORPUSCULAR HGB CONC 35.2 g/dl (32.0-36.5); MEAN CORPUSCULAR VOLUME 78.6 fl (80.0-96.0); MONO # 0.7 10^3/uL (0.0-0.8); MONO % 7.1 % (2.0-8.0); NEUTROPHILS # 6.6 10^3/uL (1.5-8.5); NEUTROPHILS % 63.1 % (36.0-66.0); PLATELET COUNT, AUTOMATED 371 10^3/uL (150-450); RED BLOOD COUNT 6.03 10^6/uL (4.30-6.10); WHITE BLOOD COUNT 10.5 10^3/uL (4.0-10.0)
[2024-12-01 19:14] LABS: LIPASE 32 U/L (12-53)
[2024-12-01 19:16] LABS: ALBUMIN 4.2 G/DL (3.2-5.2); ALKALINE PHOSPHATASE 72 U/L (40-129); ALT/SGPT 28 U/L (7.0-40); AST/SGOT 18 U/L (<34); BILIRUBIN,DIRECT 0.1 MG/DL (<0.4); BILIRUBIN,TOTAL 0.4 MG/DL (0.3-1.2); BLOOD UREA NITROGEN 8 MG/DL (9-23); CARBON DIOXIDE LEVEL 26 MMOL/L (20-31); CHLORIDE LEVEL 107 MMOL/L (98-107); CREATININE FOR GFR 0.98 MG/DL (0.70-1.30); GLOMERULAR FILTRATION RATE > 60.0 (>60); GLUCOSE, FASTING 92 MG/DL (60-100); POTASSIUM SERUM 4.2 MMOL/L (3.5-5.1); SODIUM LEVEL 142 MMOL/L (136-145); TOTAL PROTEIN 7.7 G/DL (5.7-8.2)
[2024-12-01] MEDS: KETOROLAC 30 MG/ML 1ML VIAL IV ONE (20:38)
[2024-12-01 22:01] VITALS: BP 123/67
[2024-12-01 22:15] VITALS: O2SAT 96
[2024-12-01] MEDS ORDERED: NAPR-837 PO (22:49)
== END 2024-12-01 22:53 | disposition home or self-care (01) ==
LOC: M ED 17:41
DX: R10.11 Right upper quadrant pain (principal); K21.9 Gastro-esophageal reflux disease without esophagitis; Z87.442 Personal history of urinary calculi; Z79.899 Other long term (current) drug therapy; Z91.89 Other specified personal risk factors, not elsewhere classified; Z88.5 Allergy status to narcotic agent; Z88.8 Allergy status to other drugs, medicaments and biological substances; Z91.040 Latex allergy status
CPT/HCPCS: 76705; 80048; 80076; 83690; 85025; 93005; 96374; 99284; J1885

== ENCOUNTER → 2024-12-05 | Outpatient (CLI) | payer OTHER ==
[~2024-12-05] MED LIST changes: +OMEP40CA5; +TRAM50TA2
[2024-12-05 15:16] LABS: BASO # 0.1 10^3/uL (0.0-0.2); BASO % 0.9 % (0.0-1.0); EOS # 0.1 10^3/uL (0.0-0.5); HEMATOCRIT 47.4 % (42.0-52.0); LYMPH % 28.2 % (24.0-44.0); MEAN CORPUSCULAR HEMOGLOBIN 27.7 pg (27.0-33.0); MEAN CORPUSCULAR HGB CONC 33.8 g/dl (32.0-36.5); MONO # 0.8 10^3/uL (0.0-0.8); MONO % 10.6 % (2.0-8.0); NEUTROPHILS # 4.1 10^3/uL (1.5-8.5); PLATELET COUNT, AUTOMATED 329 10^3/uL (150-450); RED BLOOD COUNT 5.78 10^6/uL (4.30-6.10); WHITE BLOOD COUNT 7.1 10^3/uL (4.0-10.0)
[2024-12-05 15:48] LABS: ALBUMIN 3.9 G/DL (3.2-5.2); ALKALINE PHOSPHATASE 69 U/L (40-129); ALT/SGPT 34 U/L (7.0-40); AST/SGOT 17 U/L (<34); BILIRUBIN,DIRECT 0.2 MG/DL (<0.4); BILIRUBIN,TOTAL 0.4 MG/DL (0.3-1.2); CALCIUM LEVEL 9.6 MG/DL (8.5-10.1); GLOMERULAR FILTRATION RATE > 60.0 (>60); TOTAL PROTEIN 7.3 G/DL (5.7-8.2)
== END ==
LOC: M PLALAB 13:20
PROVIDERS: ATTEND Internal Medicine Pulmonary Disease
DX: R91.8 Other nonspecific abnormal finding of lung field (principal)

== ENCOUNTER 2024-12-14 07:29 | Day surgery (SDC) | payer OTHER ==
[~2024-12-14] VITALS: Ht 180.3 cm; Wt 112.7 kg
[2024-12-14] MEDS ORDERED: LR 1,000 ML IV SCH ×2 (07:40→10:20)
[2024-12-14] MEDS ORDERED: SUGAMMADEX SODIUM 500 MG/5 ML VIAL (BRIDION) As Ordered ONE (08:32)
[2024-12-14] MEDS ORDERED: ROCURONIUM BROMIDE 50MG/5ML VIAL As Ordered ONE (08:32)
[2024-12-14] MEDS ORDERED: ONDANSETRON 4MG 2ML VIAL As Ordered ONE (08:32)
[2024-12-14] MEDS ORDERED: propofoL 200 MG/20 ML VIAL As Ordered ONE (08:32)
[2024-12-14] MEDS ORDERED: LIDOCAINE 2% 100MG/5ML SDV (FOR ANES.) As Ordered ONE (08:32)
[2024-12-14] MEDS ORDERED: MIDAZOLAM INJ 2MG/2ML VIAL As Ordered ONE (08:33)
[2024-12-14] MEDS ORDERED: fentaNYL 100 MCG/2 ML INJECTION As Ordered ONE (08:33)
[2024-12-14] MEDS ORDERED: dexmedeTOMIDine (4MCG/ML)200MCG/50ML BTL (PRECEDEX) As Ordered ONE (09:17)
[2024-12-14] MEDS: CETACAINE SPRAY 5GM As Ordered ONE (09:47)
[2024-12-14] MEDS: EPINEPHrine 1MG/10ML SYRINGE 1.5IN As Ordered ONE (10:00)
[2024-12-14] MEDS ORDERED: oxyCODONE 5MG TAB PO PRN (10:20)
[2024-12-14] MEDS ORDERED: ONDANSETRON 4MG 2ML VIAL IV PRN (10:20)
[2024-12-14] MEDS ORDERED: fentaNYL 100 MCG/2 ML INJECTION IV PRN (10:20)
[2024-12-14 11:15] VITALS: BP 116/78; TEMP 97.7; O2SAT 97
== END 2024-12-14 11:40 | disposition home or self-care (01) ==
LOC: M SDC 07:29
PROVIDERS: ATTEND Internal Medicine Pulmonary Disease
DX: R59.0 Localized enlarged lymph nodes (principal); F17.210 Nicotine dependence, cigarettes, uncomplicated; Z88.5 Allergy status to narcotic agent; Z88.8 Allergy status to other drugs, medicaments and biological substances; Z91.040 Latex allergy status
CPT/HCPCS: 31652; 71045; 87070; 87102; 87205; 88173; 88305; J1100; J2250; J2405; J3010

== ENCOUNTER → 2024-12-20 | Outpatient (CLI) | payer OTHER ==
[2024-12-20 15:47] LABS: BLOOD UREA NITROGEN 11 MG/DL (9-23); CREATININE FOR GFR 0.94 MG/DL (0.70-1.30); GLOMERULAR FILTRATION RATE > 60.0 (>60)
[2024-12-21 13:52] LABS: EBV AB TO NUCLEAR ANTIGEN > 600.00 U/mL (<18.00); EBV VIRAL CAPSID AG IGG > 750.00 U/mL (<18.00); EBV VIRAL CAPSID AG IGM < 36.00 U/mL (<36.00)
== END ==
LOC: M PLALAB 09:46
PROVIDERS: ATTEND Internal Medicine Pulmonary Disease
DX: R91.8 Other nonspecific abnormal finding of lung field (principal)

== ENCOUNTER 2024-12-24 17:06 | Emergency (ER) | payer OTHER ==
[~2024-12-24] VITALS: Ht 180.3 cm; Wt 114.3 kg
[2024-12-24] MEDS ORDERED: AMOX500T2 (17:14)
[2024-12-24 19:47] LABS: BASO # 0.1 10^3/uL (0.0-0.2); BASO % 0.8 % (0.0-1.0); EOS # 0.1 10^3/uL (0.0-0.5); EOS % 1.1 % (0.0-3.0); HEMATOCRIT 47.8 % (42.0-52.0); HEMOGLOBIN 16.5 g/dl (13.5-17.5); LYMPH # 2.5 10^3/uL (1.5-5.0); LYMPH % 19.7 % (24.0-44.0); MEAN CORPUSCULAR HGB CONC 34.5 g/dl (32.0-36.5); MEAN CORPUSCULAR VOLUME 81.2 fl (80.0-96.0); MONO % 7.7 % (2.0-8.0); NEUTROPHILS % 70.2 % (36.0-66.0); PLATELET COUNT, AUTOMATED 319 10^3/uL (150-450); RED BLOOD COUNT 5.89 10^6/uL (4.30-6.10); WHITE BLOOD COUNT 12.8 10^3/uL (4.0-10.0)
[2024-12-24 20:11] LABS: BILIRUBIN,DIRECT 0.1 MG/DL (<0.4); BILIRUBIN,TOTAL 0.3 MG/DL (0.3-1.2); TOTAL PROTEIN 7.6 G/DL (5.7-8.2)
[2024-12-24] MEDS: NS (Normal Saline) 0.9% 1,000 ML IV ONE (20:11)
[2024-12-24] MEDS: PANTOPRAZOLE 40MG VIAL IV ONE (20:11)
[2024-12-24] MEDS: SUCRALFATE SUSP 1GM/10ML UD PO ONE (20:11)
[2024-12-24] MEDS ORDERED: SUCR1SS PO (20:48)
[2024-12-24] MEDS ORDERED: OMEP40CA4 PO (20:48)
[2024-12-24 21:27] VITALS: BP 141/83; TEMP 98; O2SAT 96
== END 2024-12-24 21:28 | disposition home or self-care (01) ==
LOC: M ED 17:06
DX: K29.70 Gastritis, unspecified, without bleeding (principal); F17.210 Nicotine dependence, cigarettes, uncomplicated; Z88.5 Allergy status to narcotic agent; Z88.8 Allergy status to other drugs, medicaments and biological substances; Z91.040 Latex allergy status; Z79.2 Long term (current) use of antibiotics; Z79.51 Long term (current) use of inhaled steroids; Z79.899 Other long term (current) drug therapy
CPT/HCPCS: 80047; 80076; 83690; 85025; 96361; 96374; 99284; J2470

== ENCOUNTER 2025-01-08 15:59 | Emergency (ER) | payer OTHER ==
[~2025-01-08] VITALS: Ht 180.3 cm; Wt 114.1 kg
[~2025-01-08 15:59] MED LIST changes: +AMOX500T2; +OMEP40CA4 PO; +SUCR1SS PO
[2025-01-08 18:30] VITALS: BP 132/62; TEMP 97.8; O2SAT 98
== END 2025-01-08 18:32 | disposition home or self-care (01) ==
LOC: M ED 15:59
DX: M25.562 Pain in left knee (principal); X50.0XXA Overexertion from strenuous movement or load, initial encounter; Y92.009 Unspecified place in unspecified non-institutional (private) residence as the place of occurrence of the external cause; Y93.89 Activity, other specified; Y99.9 Unspecified external cause status; Z88.5 Allergy status to narcotic agent; Z88.8 Allergy status to other drugs, medicaments and biological substances; Z91.040 Latex allergy status

== ENCOUNTER 2025-01-11 16:58 | Emergency (ER) | payer OTHER ==
[~2025-01-11] VITALS: Ht 180.3 cm; Wt 112.9 kg
[2025-01-11 19:49] LABS: BASO # 0.1 10^3/uL (0.0-0.2); BASO % 0.6 % (0.0-1.0); EOS # 0.1 10^3/uL (0.0-0.5); EOS % 0.7 % (0.0-3.0); HEMATOCRIT 48.5 % (42.0-52.0); HEMOGLOBIN 16.2 g/dl (13.5-17.5); LYMPH # 2.8 10^3/uL (1.5-5.0); LYMPH % 18.3 % (24.0-44.0); MEAN CORPUSCULAR HEMOGLOBIN 27.5 pg (27.0-33.0); MEAN CORPUSCULAR HGB CONC 33.4 g/dl (32.0-36.5); MEAN CORPUSCULAR VOLUME 82.3 fl (80.0-96.0); MONO # 1.3 10^3/uL (0.0-0.8); MONO % 8.2 % (2.0-8.0); NEUTROPHILS % 71.7 % (36.0-66.0); PLATELET COUNT, AUTOMATED 404 10^3/uL (150-450); RED BLOOD COUNT 5.89 10^6/uL (4.30-6.10); WHITE BLOOD COUNT 15.3 10^3/uL (4.0-10.0)
[2025-01-11 20:02] LABS: INR 1.03; PROTHROMBIN TIME 13.8 SECONDS (12.5-14.5)
[2025-01-11 20:20] VITALS: BP 144/68; TEMP 100.3; O2SAT 97
[2025-01-11 20:25] LABS: CK-MB VALUE MASS < 1.0 NG/ML (<3.6); LIPASE 26 U/L (12-53)
[2025-01-11 20:27] LABS: ALBUMIN 3.9 G/DL (3.2-5.2); ALKALINE PHOSPHATASE 105 U/L (40-129); ALT/SGPT 25 U/L (7.0-40); AST/SGOT 13 U/L (<34); BILIRUBIN,DIRECT 0.1 MG/DL (<0.4); BILIRUBIN,TOTAL 0.3 MG/DL (0.3-1.2); BLOOD UREA NITROGEN 11 MG/DL (9-23); CALCIUM LEVEL 9.1 MG/DL (8.5-10.1); CARBON DIOXIDE LEVEL 29 MMOL/L (20-31); CHLORIDE LEVEL 102 MMOL/L (98-107); CPK CREATINE PHOSPHOKINASE 53 U/L (46-171); CREATININE FOR GFR 0.97 MG/DL (0.70-1.30); GLOMERULAR FILTRATION RATE > 90.0 (>60); GLUCOSE, FASTING 93 MG/DL (60-100); MB/CK RELATIVE INDEX 1.88 (< OR =4); POTASSIUM SERUM 3.8 MMOL/L (3.5-5.1); SODIUM LEVEL 140 MMOL/L (136-145); TOTAL PROTEIN 7.8 G/DL (5.7-8.2)
== END 2025-01-11 22:16 | disposition left against medical advice (07) ==
LOC: M ED 16:58
DX: Z53.21 Procedure and treatment not carried out due to patient leaving prior to being seen by health care provider (principal)

== ENCOUNTER → 2025-01-19 | Outpatient (CLI) | payer OTHER ==
[~2025-01-19] MED LIST changes: -FLOM0.4C39 PO; +TAMS-18 PO
== END ==
LOC: M SLEEP HO 10:54
PROVIDERS: ATTEND Internal Medicine Pulmonary Disease
DX: R06.83 Snoring (principal)

== ENCOUNTER → 2025-01-26 | Outpatient (REF) | payer OTHER | LOC: M SFHCPLAZ 13:01 | PROVIDERS: ATTEND Nurse Practitioner Family | DX: J02.9 Acute pharyngitis, unspecified (principal) ==

== ENCOUNTER → 2025-01-26 | Outpatient (REF) | payer OTHER | LOC: M SFHCPLAZ 12:59 | PROVIDERS: ATTEND Nurse Practitioner Family | DX: J02.9 Acute pharyngitis, unspecified (principal) ==

== ENCOUNTER 2025-02-08 13:57 | Inpatient (IN) | payer OTHER ==
[~2025-02-08] VITALS: Ht 180.3 cm; Wt 106.5 kg
[~2025-02-08 13:57] MED LIST changes: +LIDO1ADH93 TD; -LIDO5DIS41 TD
[2025-02-08 15:04] LABS: BASO # 0.1 10^3/uL (0.0-0.2); BASO % 0.3 % (0.0-1.0); EOS % 0.2 % (0.0-3.0); HEMATOCRIT 40.7 % (42.0-52.0); HEMOGLOBIN 13.7 g/dl (13.5-17.5); LYMPH # 2.1 10^3/uL (1.5-5.0); LYMPH % 10.5 % (24.0-44.0); MEAN CORPUSCULAR HEMOGLOBIN 26.7 pg (27.0-33.0); MEAN CORPUSCULAR HGB CONC 33.7 g/dl (32.0-36.5); MEAN CORPUSCULAR VOLUME 79.3 fl (80.0-96.0); MONO # 2.1 10^3/uL (0.0-0.8); MONO % 10.5 % (2.0-8.0); NEUTROPHILS # 15.7 10^3/uL (1.5-8.5); PLATELET COUNT, AUTOMATED 411 10^3/uL (150-450); RED BLOOD COUNT 5.13 10^6/uL (4.30-6.10); WHITE BLOOD COUNT 20.1 10^3/uL (4.0-10.0)
[2025-02-08] MEDS: NS (Normal Saline) 0.9% 1,000 ML IV ONE ×2 (15:18→19:00)
[2025-02-08] MEDS: ONDANSETRON 4MG 2ML VIAL IV ONE (15:18)
[2025-02-08 15:32] LABS: LIPASE 24 U/L (12-53)
[2025-02-08 15:34] LABS: ALKALINE PHOSPHATASE 64 U/L (40-129); ALT/SGPT 12 U/L (7.0-40); AST/SGOT 24 U/L (<34); BILIRUBIN,TOTAL 0.5 MG/DL (0.3-1.2); BLOOD UREA NITROGEN 9 MG/DL (9-23); CALCIUM LEVEL 8.6 MG/DL (8.5-10.1); CARBON DIOXIDE LEVEL 24 MMOL/L (20-31); CHLORIDE LEVEL 100 MMOL/L (98-107); CREATININE FOR GFR 0.92 MG/DL (0.70-1.30); GLOMERULAR FILTRATION RATE > 90.0 (>60); GLUCOSE, FASTING 108 MG/DL (60-100); POTASSIUM SERUM 4.1 MMOL/L (3.5-5.1); SODIUM LEVEL 135 MMOL/L (136-145); TOTAL PROTEIN 7.2 G/DL (5.7-8.2)
[2025-02-08] MEDS ORDERED: ISOVUE-370 76% 100ML VIAL As Ordered ONE (15:50)
[2025-02-08 15:52] LABS: ERYTHROCYTE SEDIMENTATION RATE 92 mm/hr (0-15)
[2025-02-08 15:57] LABS: CK-MB VALUE MASS < 1.0 NG/ML (<3.6)
[2025-02-08 16:08] LABS: C REACTIVE PROTEIN QUANTITATIV 20.56 MG/DL (<1.0); CPK CREATINE PHOSPHOKINASE 106 U/L (46-171); MB/CK RELATIVE INDEX 0.94 (< OR =4)
[2025-02-08] MEDS: IPRATROPIUM 0.5MG/ALBUTEROL 2.5MG INH SOL UD 3ML NEB ONE (16:19)
[2025-02-08] MEDS: methylPREDNISolone 125MG 2ML VIAL IV ONE (18:59)
[2025-02-08] MEDS: BENZONATATE 100MG CAPSULE PO ONE (18:59)
[2025-02-08] MEDS ORDERED: ACET-907 PO (21:14)
[2025-02-08] MEDS ORDERED: HOME MED LIST COMPLETE! XX SCH (21:20)
[2025-02-08] MEDS ORDERED: MOM 30ML SUSPENSION UDC PO PRN (22:45)
[2025-02-08] MEDS ORDERED: ACETAMINOPHEN 325 MG TAB PO PRN (22:45)
[2025-02-08] MEDS ORDERED: MAALOX 30 ML SUSP *UDC PO PRN (22:45)
[2025-02-08 23:30] VITALS: BP 124/74; TEMP 97; O2SAT 98
[2025-02-09 01:13] LABS: INR 1.27; PROTHROMBIN TIME 16.2 SECONDS (12.5-14.5)
[2025-02-09 03:50] VITALS: BP 102/55; TEMP 98.2; O2SAT 95
[2025-02-09] MEDS: methylPREDNISolone 125MG 2ML VIAL IV SCH (03:52)
[2025-02-09] MEDS: IBUPROFEN 600MG TAB PO SCH (06:00)
[2025-02-09] MEDS: IPRATROPIUM 0.5MG/ALBUTEROL 2.5MG INH SOL UD 3ML NEB SCH (07:38)
[2025-02-09 07:49] VITALS: BP 113/72; TEMP 97.2; O2SAT 94
[2025-02-09 08:31] LABS: HEMATOCRIT 40.8 % (42.0-52.0); HEMOGLOBIN 13.9 g/dl (13.5-17.5); MEAN CORPUSCULAR HEMOGLOBIN 26.8 pg (27.0-33.0); MEAN CORPUSCULAR HGB CONC 34.1 g/dl (32.0-36.5); MEAN CORPUSCULAR VOLUME 78.8 fl (80.0-96.0); PLATELET COUNT, AUTOMATED 435 10^3/uL (150-450); RED BLOOD COUNT 5.18 10^6/uL (4.30-6.10); WHITE BLOOD COUNT 12.8 10^3/uL (4.0-10.0)
[2025-02-09] MEDS: BENZONATATE 100MG CAPSULE PO SCH (08:52)
[2025-02-09] MEDS: DOXYCYCLINE HYCLATE 100MG TABLET PO SCH (08:52)
[2025-02-09] MEDS: COLCHICINE 0.6 MG TABLET PO SCH (08:52)
[2025-02-09] MEDS: ENOXAPARIN 40MG/0.4ML SYRINGE (J1650 PER 10MG) SC SCH (08:52)
[2025-02-09] MEDS: cefTRIAXone SOD 1 GM in DEXTROSE 5% (D5W) ADV/MINI-BAG 50 ML IV SCH (08:53)
[2025-02-09] MEDS: DOCUSATE SODIUM 100MG CAPSULE PO SCH (08:53)
[2025-02-09 09:00] LABS: ALBUMIN 2.8 G/DL (3.2-5.2); ALKALINE PHOSPHATASE 64 U/L (40-129); ALT/SGPT 12 U/L (7.0-40); AST/SGOT 10 U/L (<34); BILIRUBIN,TOTAL 0.4 MG/DL (0.3-1.2); BLOOD UREA NITROGEN 10 MG/DL (9-23); CALCIUM LEVEL 8.7 MG/DL (8.5-10.1); CARBON DIOXIDE LEVEL 20 MMOL/L (20-31); CHLORIDE LEVEL 107 MMOL/L (98-107); CREATININE FOR GFR 0.64 MG/DL (0.70-1.30); GLOMERULAR FILTRATION RATE > 90.0 (>60); GLUCOSE, FASTING 147 MG/DL (60-100); POTASSIUM SERUM 4.2 MMOL/L (3.5-5.1); SODIUM LEVEL 139 MMOL/L (136-145); TOTAL PROTEIN 6.8 G/DL (5.7-8.2)
[2025-02-09 09:01] LABS: RHEUMATOID FACTOR QUANT 14.4 IU/ML (<14)
[2025-02-09 09:02] LABS: THYROID STIMULATING HORMONE 0.284 uIU/ML (0.55-4.78)
[2025-02-09 09:07] LABS: PROCALCITONIN 0.11 ng/ml
[2025-02-09] MEDS: PANTOPRAZOLE 40MG TAB PO SCH (09:13)
[2025-02-09] MEDS: predniSONE 20 MG TAB PO SCH (09:14)
[2025-02-09] MEDS ORDERED: COLC0.6T47 PO (10:13)
[2025-02-09] MEDS ORDERED: PANT40TA29 PO (10:13)
[2025-02-09] MEDS ORDERED: PRED20TA PO (10:13)
[2025-02-09] MEDS ORDERED: BENZ-18 PO (10:13)
[2025-02-09] MEDS ORDERED: CEFD1CAP9 PO (10:13)
[2025-02-09] MEDS ORDERED: COLA100C5 PO (10:13)
[2025-02-09] MEDS: ALBUTEROL SULFATE 2.5MG/0.5ML INH CONCENTRATE NEB SOLN NEB PRN (11:32)
[2025-02-09 13:18] LABS: FREE T3 2.5 PG/ML (2.3-4.2)
[2025-02-10] MEDS ORDERED: BENZ200C70 PO (14:07)
[2025-02-10] MEDS ORDERED: PANT40TA29 PO (14:07)
[2025-02-10] MEDS ORDERED: CEFD1CAP9 PO (14:07)
[2025-02-10] MEDS ORDERED: COLC0.6T47 PO (14:07)
[2025-02-10] MEDS ORDERED: DOCU100C16 PO (14:07)
[2025-02-10] MEDS ORDERED: ALBU8.5H INH (14:07)
[2025-02-13 16:11] LABS: ANA SCREEN, IFA NEGATIVE (NEGATIVE)
== END 2025-02-09 12:10 | disposition home or self-care (01) | DRG 207 ==
LOC: M ED 13:57 → M ED INP 22:41 → M PCU 23:27
PROVIDERS: ADMIT Student in an Organized Health Care Education/Training Program; ATTEND Internal Medicine
DX: I31.39 Other pericardial effusion (noninflammatory) (principal); J18.9 Pneumonia, unspecified organism; K21.9 Gastro-esophageal reflux disease without esophagitis; F17.210 Nicotine dependence, cigarettes, uncomplicated; Z91.040 Latex allergy status; Z88.5 Allergy status to narcotic agent; Z88.8 Allergy status to other drugs, medicaments and biological substances

== ENCOUNTER 2025-04-11 05:33 | Emergency (ER) | payer OTHER ==
[~2025-04-11] VITALS: Ht 180.3 cm; Wt 109.0 kg
[~2025-04-11 05:33] MED LIST changes: +BENZ-18 PO; +CEFD1CAP9 PO; +COLA100C5 PO; +COLC0.6T47 PO; +DOCU100C16 PO
[2025-04-11 05:35] VITALS: BP 133/78; TEMP 97.4; O2SAT 97
== END 2025-04-11 06:35 | disposition left against medical advice (07) ==
LOC: M ED 05:33
DX: Z53.21 Procedure and treatment not carried out due to patient leaving prior to being seen by health care provider (principal)

== ENCOUNTER 2025-05-17 18:48 | Emergency (ER) | payer OTHER ==
[~2025-05-17] VITALS: Ht 180.3 cm; Wt 109.1 kg
[~2025-05-17 18:48] MED LIST changes: +GABA-1171; +LISI2.5T9; +NICO1DIS12
[2025-05-17 18:52] VITALS: TEMP 98.3
[2025-05-17 20:00] LABS: BASO # 0.1 10^3/uL (0.0-0.2); BASO % 0.6 % (0.0-1.0); EOS # 0.1 10^3/uL (0.0-0.5); EOS % 0.8 % (0.0-3.0); LYMPH # 3.0 10^3/uL (1.5-5.0); LYMPH % 21.6 % (24.0-44.0); MONO # 1.2 10^3/uL (0.0-0.8); MONO % 8.9 % (2.0-8.0); NEUTROPHILS # 9.3 10^3/uL (1.5-8.5); NEUTROPHILS % 67.5 % (36.0-66.0); PLATELET COUNT, AUTOMATED 419 10^3/uL (150-450)
[2025-05-17 20:33] LABS: CK-MB VALUE MASS < 1.0 NG/ML (<3.6)
[2025-05-17 20:35] LABS: CALCIUM LEVEL 9.6 MG/DL (8.5-10.1); CARBON DIOXIDE LEVEL 26 MMOL/L (20-31); CHLORIDE LEVEL 105 MMOL/L (98-107); CREATININE FOR GFR 0.91 MG/DL (0.70-1.30); GLOMERULAR FILTRATION RATE > 90.0 (>60); POTASSIUM SERUM 4.3 MMOL/L (3.5-5.1); SODIUM LEVEL 139 MMOL/L (136-145)
[2025-05-17 20:42] LABS: ERYTHROCYTE SEDIMENTATION RATE 27 mm/hr (0-15)
[2025-05-17 20:46] LABS: C REACTIVE PROTEIN QUANTITATIV 0.78 MG/DL (<1.0)
[2025-05-17 20:47] LABS: CPK CREATINE PHOSPHOKINASE 39 U/L (46-171)
[2025-05-17] MEDS: MORPHINE 4 MG/ML 1 ML VIAL IV ONE (20:52)
[2025-05-17 21:34] LABS: CK-MB VALUE MASS < 1.0 NG/ML (<3.6)
[2025-05-17 21:35] LABS: CPK CREATINE PHOSPHOKINASE 36 U/L (46-171)
[2025-05-17] MEDS ORDERED: PERC5TAB12 PO (22:21)
[2025-05-17] MEDS: OXYCODONE/APAP 5MG/325MG(HOME DOSE PACK) PO ONE (22:29)
[2025-05-17 22:30] VITALS: BP 131/87; O2SAT 96
== END 2025-05-17 22:38 | disposition home or self-care (01) ==
LOC: M ED 18:48
DX: R07.9 Chest pain, unspecified (principal); I10 Essential (primary) hypertension; K21.9 Gastro-esophageal reflux disease without esophagitis; Z87.442 Personal history of urinary calculi; Z79.899 Other long term (current) drug therapy; Z88.5 Allergy status to narcotic agent; Z88.8 Allergy status to other drugs, medicaments and biological substances; Z91.89 Other specified personal risk factors, not elsewhere classified; Z91.040 Latex allergy status; Z91.018 Allergy to other foods

== ENCOUNTER 2025-06-12 19:35 | Emergency (ER) | payer OTHER ==
[~2025-06-12] VITALS: Ht 177.8 cm; Wt 113.6 kg
[~2025-06-12 19:35] MED LIST changes: -COLC0.6T47 PO; +COLC0.6T53 PO; -IBUP-1022 PO; +IBUP600T42 PO; -NICO1DIS12; +NICO1DIS12 TOP; +PERC5TAB12 PO
[2025-06-12 20:23] LABS: BASO # 0.1 10^3/uL (0.0-0.2); BASO % 0.4 % (0.0-1.0); EOS # 0.1 10^3/uL (0.0-0.5); EOS % 0.4 % (0.0-3.0); LYMPH # 2.4 10^3/uL (1.5-5.0); LYMPH % 17.3 % (24.0-44.0); MONO # 1.2 10^3/uL (0.0-0.8); MONO % 8.3 % (2.0-8.0); NEUTROPHILS # 10.1 10^3/uL (1.5-8.5); NEUTROPHILS % 73.1 % (36.0-66.0); PLATELET COUNT, AUTOMATED 355 10^3/uL (150-450)
[2025-06-12] MEDS: ACETAMINOPHEN *IV* 1,000 MG in IV 1 EA IV ONE (20:36)
[2025-06-12] MEDS: FAMOTIDINE 20 MG/2 ML VIAL IVP ONE (20:36)
[2025-06-12] MEDS: ONDANSETRON 4MG 2ML VIAL IV ONE (20:36)
[2025-06-12] MEDS: LR 1,000 ML IV ONE (20:36)
[2025-06-12 20:57] LABS: ALT/SGPT 39 U/L (7.0-40); AST/SGOT 16 U/L (<34); CALCIUM LEVEL 9.2 MG/DL (8.5-10.1); CARBON DIOXIDE LEVEL 27 MMOL/L (20-31); CHLORIDE LEVEL 107 MMOL/L (98-107); CREATININE FOR GFR 1.04 MG/DL (0.70-1.30); GLOMERULAR FILTRATION RATE > 90.0 (>60); POTASSIUM SERUM 4.4 MMOL/L (3.5-5.1); SODIUM LEVEL 140 MMOL/L (136-145)
[2025-06-12 21:18] LABS: KETONE, URINE AUTO RFX NEGATIVE (NEGATIVE); LEUKOCYTE ESTERASE UR AUTO RFX NEGATIVE (NEGATIVE); MUCUS, URINE RFX SMALL (NEGATIVE); NITRITE, URINE AUTO RFX NEGATIVE (NEGATIVE); RBC, URINE AUTO RFX 35 /HPF (0-3); SQUAM EPITHELIAL CELL UR AURFX 0 /HPF (0-6); WBC, URINE AUTO RFX 0 /HPF (0-3)
[2025-06-12 22:01] LABS: INR 0.97
[2025-06-12 22:08] LABS: CK-MB VALUE MASS < 1.0 NG/ML (<3.6)
[2025-06-12 22:10] LABS: CPK CREATINE PHOSPHOKINASE 43 U/L (46-171)
[2025-06-12 22:12] LABS: ALT/SGPT 35 U/L (7.0-40); AST/SGOT 20 U/L (<34)
[2025-06-12] MEDS: KETOROLAC 30 MG/ML 1 ML VIAL IV ONE (22:44)
[2025-06-13] MEDS ORDERED: IBUP-359 PO (00:21)
[2025-06-13] MEDS ORDERED: TAMS-18 PO (00:21)
[2025-06-13 00:22] VITALS: BP 134/83; TEMP 97.2; O2SAT 96
== END 2025-06-13 00:30 | disposition home or self-care (01) ==
LOC: M ED 19:35
DX: N20.0 Calculus of kidney (principal); K59.00 Constipation, unspecified; R00.0 Tachycardia, unspecified; F17.210 Nicotine dependence, cigarettes, uncomplicated; Z88.5 Allergy status to narcotic agent; Z91.040 Latex allergy status; Z91.018 Allergy to other foods; Z79.51 Long term (current) use of inhaled steroids; Z79.1 Long term (current) use of non-steroidal anti-inflammatories (NSAID); Z79.52 Long term (current) use of systemic steroids; Z79.899 Other long term (current) drug therapy
CPT/HCPCS: 74021; 74176; 76705; 80047; 80048; 80076; 81001; 82550; 82553; 83605; 83690; 84484; 85025; 85610; 85730; 86850; 86900; 86901; 93005; 93041; 96365; 96375; 99285; J0131; J1308; J1885; J2405

== ENCOUNTER 2025-06-15 21:01 | Emergency (ER) | payer OTHER ==
[~2025-06-15] VITALS: Ht 180.3 cm; Wt 113.6 kg
[~2025-06-15 21:01] MED LIST changes: +IBUP-359 PO
[2025-06-15 21:38] LABS: KETONE, URINE AUTO RFX NEGATIVE (NEGATIVE); LEUKOCYTE ESTERASE UR AUTO RFX NEGATIVE (NEGATIVE); MUCUS, URINE RFX SMALL (NEGATIVE); NITRITE, URINE AUTO RFX NEGATIVE (NEGATIVE); RBC, URINE AUTO RFX 66 /HPF (0-3); SQUAM EPITHELIAL CELL UR AURFX 1 /HPF (0-6); WBC, URINE AUTO RFX 1 /HPF (0-3)
[2025-06-15 23:26] VITALS: BP 139/90; TEMP 98.2; O2SAT 98
[2025-06-16] MEDS ORDERED: LISI5TAB11 PO (11:50)
[2025-06-16] MEDS ORDERED: OXYC1TAB23 PO (11:53)
[2025-06-16] MEDS ORDERED: GABA-1172 PO (11:54)
[2025-06-17] MEDS ORDERED: TAMS-18 PO (07:52)
== END 2025-06-16 00:58 | disposition left against medical advice (07) ==
LOC: M ED 21:01
DX: Z53.21 Procedure and treatment not carried out due to patient leaving prior to being seen by health care provider (principal)

== ENCOUNTER 2025-06-16 04:53 | Observation (INO) | payer OTHER ==
[~2025-06-16] VITALS: Ht 180.3 cm; Wt 113.6 kg
[2025-06-16 06:34] LABS: BASO # 0.1 10^3/uL (0.0-0.2); BASO % 0.3 % (0.0-1.0); EOS # 0.1 10^3/uL (0.0-0.5); EOS % 0.3 % (0.0-3.0); LYMPH # 1.7 10^3/uL (1.5-5.0); LYMPH % 7.8 % (24.0-44.0); MONO # 2.3 10^3/uL (0.0-0.8); MONO % 10.5 % (2.0-8.0); NEUTROPHILS # 17.4 10^3/uL (1.5-8.5); NEUTROPHILS % 80.5 % (36.0-66.0); PLATELET COUNT, AUTOMATED 329 10^3/uL (150-450)
[2025-06-16 06:40] LABS: KETONE, URINE AUTO RFX NEGATIVE (NEGATIVE); LEUKOCYTE ESTERASE UR AUTO RFX NEGATIVE (NEGATIVE); MUCUS, URINE RFX SMALL (NEGATIVE); NITRITE, URINE AUTO RFX NEGATIVE (NEGATIVE); RBC, URINE AUTO RFX 13 /HPF (0-3); SQUAM EPITHELIAL CELL UR AURFX 0 /HPF (0-6); WBC, URINE AUTO RFX 2 /HPF (0-3)
[2025-06-16 07:08] LABS: ALT/SGPT 38.0 U/L (7.0-40); AST/SGOT 20.0 U/L (<34); CALCIUM LEVEL 9.2 MG/DL (8.5-10.1); CARBON DIOXIDE LEVEL 26.0 MMOL/L (20-31); CHLORIDE LEVEL 104.0 MMOL/L (98-107); CREATININE FOR GFR 1.38 MG/DL (0.70-1.30); GLOMERULAR FILTRATION RATE 70.6 (>60); POTASSIUM SERUM 4.0 MMOL/L (3.5-5.1); SODIUM LEVEL 138.0 MMOL/L (136-145)
[2025-06-16] MEDS ORDERED: ISOVUE-370 76% 100 ML VIAL As Ordered ONE (09:06)
[2025-06-16] MEDS: KETOROLAC 30 MG/ML 1 ML VIAL IV ONE (10:03)
[2025-06-16] MEDS: ONDANSETRON 4MG 2ML VIAL IV ONE (10:03)
[2025-06-16] MEDS: NS (Normal Saline) 0.9% 1,000 ML IV ONE (10:04)
[2025-06-16] MEDS: cefTRIAXone SOD 1 GM in DEXTROSE 5% (D5W) ADV/MINI-BAG 50 ML IV ONE (10:22)
[2025-06-16] MEDS ORDERED: LISI5TAB11 PO (11:50)
[2025-06-16] MEDS ORDERED: OXYC1TAB23 PO (11:53)
[2025-06-16] MEDS ORDERED: GABA-1172 PO (11:54)
[2025-06-16] MEDS ORDERED: HOME MED LIST COMPLETE! XX SCH (11:55)
[2025-06-16] MEDS ORDERED: ALBUTEROL 90 MCG/ACT 8 GM HFA INHALER INH PRN (12:10)
[2025-06-16] MEDS ORDERED: MORPHINE 2 MG/ML 1 ML VIAL IV PRN (12:15)
[2025-06-16 12:52] LABS: INR 1.02
[2025-06-16] MEDS: NICOTINE 21 MG/24 HR 1 EA TRANSDERMAL TOP SCH (13:42)
[2025-06-16] MEDS: MORPHINE 4 MG/ML 1 ML VIAL IV PRN (13:42)
[2025-06-16] MEDS: TAMSULOSIN 0.4 MG CAP PO SCH (13:44)
[2025-06-16] MEDS: ONDANSETRON 4MG TAB PO SCH (13:45)
[2025-06-16] MEDS: NS (Normal Saline) 0.9% 1,000 ML IV SCH ×2 (13:47→14:02)
[2025-06-16] MEDS: ceFAZolin SODIUM 2 GM in DEXTROSE 5% (D5W) ADV/MINI-BAG 50 ML IV ONE (14:29)
[2025-06-16] MEDS: GABAPENTIN 300 MG CAP PO SCH (16:44)
[2025-06-16] MEDS ORDERED: MIDAZOLAM INJ 2 MG/2 ML VIAL As Ordered ONE (20:03)
[2025-06-16] MEDS ORDERED: LIDOCAINE 2% 100 MG/5 ML SDV (FOR ANES.) As Ordered ONE (20:06)
[2025-06-16] MEDS ORDERED: ISOVUE-300 61% 100 ML VIAL As Ordered ONE (20:10)
[2025-06-16] MEDS ORDERED: ONDANSETRON 4MG 2ML VIAL As Ordered ONE (20:38)
[2025-06-16] MEDS ORDERED: KETOROLAC 30 MG/ML 1 ML VIAL As Ordered ONE (20:38)
[2025-06-16] MEDS ORDERED: PHENYLephrine 500MCG 5ML (100MCG/ML) SYRINGE As Ordered ONE (20:46)
[2025-06-16 22:00] VITALS: BP 117/58; TEMP 98.4; O2SAT 98
[2025-06-16] MEDS ORDERED: MORPHINE 4 MG/ML 1 ML VIAL IV PRN (22:20)
[2025-06-16 22:30] VITALS: BP 108/56; TEMP 98.2; O2SAT 98
[2025-06-16] MEDS: PANTOPRAZOLE 40MG TAB PO SCH (22:46)
[2025-06-16 22:56] VITALS: BP 108/58; TEMP 98.2; O2SAT 97
[2025-06-16 23:30] VITALS: BP 104/54; TEMP 98.2; O2SAT 97
[2025-06-17 00:30] VITALS: BP 96/52; TEMP 98.2; O2SAT 94
[2025-06-17 01:27] VITALS: BP 103/54; TEMP 98.1; O2SAT 96
[2025-06-17 02:30] VITALS: BP 105/52; TEMP 98.2; O2SAT 95
[2025-06-17 04:00] VITALS: BP 108/64; TEMP 98.1; O2SAT 96
[2025-06-17 06:51] LABS: PLATELET COUNT, AUTOMATED 301 10^3/uL (150-450)
[2025-06-17 07:16] LABS: ALT/SGPT 25.0 U/L (7.0-40); AST/SGOT 16.0 U/L (<34); CALCIUM LEVEL 8.3 MG/DL (8.5-10.1); CARBON DIOXIDE LEVEL 28.0 MMOL/L (20-31); CHLORIDE LEVEL 108.0 MMOL/L (98-107); CREATININE FOR GFR 1.26 MG/DL (0.70-1.30); GLOMERULAR FILTRATION RATE 78.7 (>60); POTASSIUM SERUM 3.9 MMOL/L (3.5-5.1); SODIUM LEVEL 137.0 MMOL/L (136-145)
[2025-06-17] MEDS ORDERED: TAMS-18 PO (07:52)
[2025-06-17 08:00] VITALS: BP 145/64; TEMP 97.6; O2SAT 97
[2025-06-17 09:28] VITALS: BP 117/58
== END 2025-06-17 09:42 | disposition home or self-care (01) ==
LOC: M ED 04:53 → M ED INP 04:54 → M MS4PR 21:50
PROVIDERS: ADMIT Internal Medicine; ATTEND Internal Medicine
DX: N13.4 Hydroureter (principal); N13.2 Hydronephrosis with renal and ureteral calculous obstruction; N20.0 Calculus of kidney; N17.9 Acute kidney failure, unspecified; F17.210 Nicotine dependence, cigarettes, uncomplicated; K21.9 Gastro-esophageal reflux disease without esophagitis; D86.0 Sarcoidosis of lung; Z79.899 Other long term (current) drug therapy
CPT/HCPCS: 36415; 52356; 74178; 76000; 80048; 80053; 80076; 81001; 82365; 83605; 83690; 85025; 85027; 85610; 85730; 96361; 96365; 96366; 96375; 99285; C1769; C2617; J0688; J0696; J1885; J2250; J2371; J2405; J2765; J3010; Q9967

== ENCOUNTER 2025-06-22 21:18 | Emergency (ER) | payer OTHER ==
[~2025-06-22] VITALS: Ht 180.3 cm; Wt 116.9 kg
[~2025-06-22 21:18] MED LIST changes: +GABA-1172 PO; +LISI5TAB11 PO; +OXYC1TAB23 PO
[2025-06-22] MEDS ORDERED: PRED10TA2 (21:32)
[2025-06-22 22:41] LABS: KETONE, URINE AUTO RFX NEGATIVE (NEGATIVE); LEUKOCYTE ESTERASE UR AUTO RFX TRACE (NEGATIVE); NITRITE, URINE AUTO RFX NEGATIVE (NEGATIVE); RBC, URINE AUTO RFX TNTC /HPF (0-3); SQUAM EPITHELIAL CELL UR AURFX 0 /HPF (0-6); WBC, URINE AUTO RFX 4 /HPF (0-3)
[2025-06-22 22:41] LABS: BASO # 0.1 10^3/uL (0.0-0.2); BASO % 0.5 % (0.0-1.0); EOS # 0.2 10^3/uL (0.0-0.5); EOS % 1.5 % (0.0-3.0); LYMPH # 2.8 10^3/uL (1.5-5.0); LYMPH % 21.9 % (24.0-44.0); MONO # 1.1 10^3/uL (0.0-0.8); MONO % 8.9 % (2.0-8.0); NEUTROPHILS # 8.6 10^3/uL (1.5-8.5); NEUTROPHILS % 66.7 % (36.0-66.0)
[2025-06-23 00:24] LABS: ALT/SGPT 30 U/L (7.0-40); AST/SGOT 15 U/L (<34); CALCIUM LEVEL 9.3 MG/DL (8.5-10.1); CARBON DIOXIDE LEVEL 26 MMOL/L (20-31); CHLORIDE LEVEL 105 MMOL/L (98-107); CREATININE FOR GFR 1.07 MG/DL (0.70-1.30); GLOMERULAR FILTRATION RATE > 90.0 (>60); POTASSIUM SERUM 4.0 MMOL/L (3.5-5.1); SODIUM LEVEL 138 MMOL/L (136-145)
[2025-06-23 02:11] VITALS: BP 135/74; TEMP 98.8; O2SAT 99
== END 2025-06-23 02:10 | disposition home or self-care (01) ==
LOC: M ED 21:18
DX: R31.9 Hematuria, unspecified (principal); Z87.442 Personal history of urinary calculi; F17.200 Nicotine dependence, unspecified, uncomplicated; Z79.899 Other long term (current) drug therapy; Z88.8 Allergy status to other drugs, medicaments and biological substances; Z88.5 Allergy status to narcotic agent; Z91.89 Other specified personal risk factors, not elsewhere classified; Z91.040 Latex allergy status; Z91.018 Allergy to other foods

== ENCOUNTER → 2025-07-05 | Outpatient (CLI) | payer OTHER ==
[~2025-07-05] MED LIST changes: +PRED10TA2
== END ==
LOC: M RAD 08:15
PROVIDERS: ATTEND Internal Medicine Pulmonary Disease
DX: R91.1 Solitary pulmonary nodule (principal); R59.0 Localized enlarged lymph nodes

== ENCOUNTER → 2025-07-14 | Outpatient (CLI) | payer OTHER | LOC: M RAD 08:07 | PROVIDERS: ATTEND Nurse Practitioner Family | DX: K76.0 Fatty (change of) liver, not elsewhere classified (principal) ==

== ENCOUNTER → 2025-07-20 | Outpatient (CLI) | payer OTHER ==
[~2025-07-20] MED LIST changes: +SUBO2MIS SL
[2025-07-20 17:05] LABS: ALT/SGPT 39 U/L (7.0-40); AST/SGOT 18 U/L (<34); CALCIUM LEVEL 9.1 MG/DL (8.5-10.1); CARBON DIOXIDE LEVEL 31 MMOL/L (20-31); CHLORIDE LEVEL 102 MMOL/L (98-107); CREATININE FOR GFR 1.00 MG/DL (0.70-1.30); GLOMERULAR FILTRATION RATE > 90.0 (>60); POTASSIUM SERUM 3.8 MMOL/L (3.5-5.1); SODIUM LEVEL 141 MMOL/L (136-145)
[2025-07-20 17:12] LABS: PLATELET COUNT, AUTOMATED 347 10^3/uL (150-450)
[2025-07-20 17:16] LABS: INR 0.92
== END ==
LOC: M PLALAB 14:44
PROVIDERS: ATTEND Urology
DX: Z96.0 Presence of urogenital implants (principal)

== ENCOUNTER 2025-07-27 09:17 | Day surgery (SDC) | payer OTHER ==
[~2025-07-27] VITALS: Ht 180.3 cm; Wt 118.0 kg
[2025-07-27] MEDS ORDERED: LIDOCAINE 1% SDV 5 ML VIAL SC PRN (09:55)
[2025-07-27] MEDS: LR 1,000 ML IV SCH (10:10)
[2025-07-27] MEDS ORDERED: ACETAMINOPHEN 1000MG/100ML IV BAG As Ordered ONE (12:10)
[2025-07-27] MEDS ORDERED: KETOROLAC 30 MG/ML 1 ML VIAL As Ordered ONE (12:10)
[2025-07-27] MEDS ORDERED: LIDOCAINE 2% 100 MG/5 ML SDV (FOR ANES.) As Ordered ONE (12:10)
[2025-07-27] MEDS ORDERED: MIDAZOLAM INJ 2 MG/2 ML VIAL As Ordered ONE (12:11)
[2025-07-27] MEDS: ceFAZolin SOD 2 GM IV ONCE IV ONE (12:34)
[2025-07-27] MEDS: ISOVUE-300 61% 100 ML VIAL As Ordered ONE (12:46)
[2025-07-27 13:00] VITALS: BP 120/59; TEMP 98; O2SAT 99
== END 2025-07-27 13:20 | disposition home or self-care (01) ==
LOC: M SDC 09:17
PROVIDERS: ATTEND Urology
DX: N20.0 Calculus of kidney (principal); Z53.8 Procedure and treatment not carried out for other reasons
CPT/HCPCS: 74018; J0688; J2250; J3010; Q9967

== ENCOUNTER → 2025-08-07 | Outpatient (REF) | payer OTHER ==
[2025-08-07 17:50] LABS: APPEARANCE, URINE CLOUDY (CLEAR); BACTERIA, URINE AUTO NEGATIVE (NEGATIVE); BILIRUBIN, URINE AUTO NEGATIVE (NEGATIVE); BLOOD, URINE BLOOD NEGATIVE (NEGATIVE); GLUCOSE, URINE (UA) AUTO NEGATIVE (NEGATIVE); KETONE, URINE AUTO NEGATIVE (NEGATIVE); LEUKOCYTE ESTERASE, URINE AUTO NEGATIVE (NEGATIVE); MUCUS, URINE SMALL (NEGATIVE); NITRITE, URINE AUTO NEGATIVE (NEGATIVE); PROTEIN, URINE AUTO NEGATIVE (NEGATIVE); RBC, URINE AUTO 0 /HPF (0-3); SPECIFIC GRAVITY URINE AUTO 1.020 (1.002-1.035); SQUAMOUS EPITHELIAL CELL UR AU 0 /HPF (0-6); UROBILINOGEN, URINE AUTO 2.0 mg/dL (0.0-2.0); WBC, URINE AUTO 0 /HPF (0-3)
== END ==
LOC: M SMT 17:00
PROVIDERS: ATTEND Nurse Practitioner Family
DX: R39.198 Other difficulties with micturition (principal)

== ENCOUNTER 2025-09-07 13:48 | Emergency (ER) | payer OTHER ==
[~2025-09-07] VITALS: Ht 180.3 cm; Wt 117.9 kg
[2025-09-07] MEDS ORDERED: BUPR1FIL35 (14:07)
[2025-09-07] MEDS ORDERED: FLUT1BLS17 (14:07)
[2025-09-07] MEDS ORDERED: PRED5TA (14:07)
[2025-09-07] MEDS ORDERED: ACETAMINOPHEN 500 MG TAB PO ONE (18:50)
[2025-09-07] MEDS ORDERED: NS (Normal Saline) 0.9% 1,000 ML IV ONE (18:50)
[2025-09-07] MEDS: ACETAMINOPHEN 500 MG TAB PO ONE (19:01)
[2025-09-07] MEDS: KETOROLAC 60 MG/2 ML VIAL IM ONE (19:01)
[2025-09-07 20:28] VITALS: BP 112/60; TEMP 97.7; O2SAT 97
== END 2025-09-07 20:36 | disposition home or self-care (01) ==
LOC: M ED 13:48
DX: S06.0X0A Concussion without loss of consciousness, initial encounter (principal); S46.012A Strain of muscle(s) and tendon(s) of the rotator cuff of left shoulder, initial encounter; W00.0XXA Fall on same level due to ice and snow, initial encounter; Y92.009 Unspecified place in unspecified non-institutional (private) residence as the place of occurrence of the external cause; Y93.9 Activity, unspecified; Y99.9 Unspecified external cause status; I10 Essential (primary) hypertension; F90.9 Attention-deficit hyperactivity disorder, unspecified type; M54.9 Dorsalgia, unspecified; K21.9 Gastro-esophageal reflux disease without esophagitis; Z87.442 Personal history of urinary calculi; F17.200 Nicotine dependence, unspecified, uncomplicated; F51.3 Sleepwalking [somnambulism]; Z79.899 Other long term (current) drug therapy; Z88.8 Allergy status to other drugs, medicaments and biological substances; Z91.89 Other specified personal risk factors, not elsewhere classified; Z91.040 Latex allergy status; Z91.018 Allergy to other foods
CPT/HCPCS: 70450; 73030; 96372; 99283; J1885

== ENCOUNTER → 2025-09-12 | Outpatient (REF) | payer OTHER ==
[~2025-09-12] MED LIST changes: +BUPR1FIL35; +FLUT1BLS17; +PRED5TA
== END ==
LOC: M SFHCPLAZ 09:47
PROVIDERS: ATTEND Family Medicine
DX: Z53.9 Procedure and treatment not carried out, unspecified reason (principal)

== ENCOUNTER → 2025-09-12 | Outpatient (CLI) | payer OTHER ==
[2025-09-12 14:03] LABS: ESTIMATED AVERAGE GLUCOSE 108.0 MG/DL (60-110)
== END ==
LOC: M PLALAB 10:07
PROVIDERS: ATTEND Family Medicine
DX: Z13.1 Encounter for screening for diabetes mellitus (principal)